=== PATIENT | male | born 1980 | race African-American/Black ===

== ENCOUNTER 2018-10-29 18:30 | Inpatient (IN) | payer OTHER, SELFPAY ==
[~2018-10-29 18:30] MED LIST: ISOVUE-370 76%-LOCM 1 ML ONE
[2018-10-29] MEDS ORDERED: Labetalol HCl 100 MG/20 ML VIAL ONE (18:33)
[2018-10-29] MEDS ORDERED: niCARdipine 20MG In NaCl 20 MG/200 ML BAG ONE (18:44)
[2018-10-29 18:47] LABS: #Eosinphils 0.1 thou/uL (0.0-0.7); #Lymphocytes 2.5 thou/uL (1.20-3.40); #Monocytes 0.9 thou/uL (0.11-0.59); %Basophils 0.1 % (0.0-1.0); %Lymphocytes 21.6 % (21.0-51.0); %Monocytes 8.1 % (0.0-10.0); %Neutrophils 69.1 % (42.0-75.0); Hemoglobin 15.7 g/dL (14.0-18.0); Mean Corpuscular HGB CONC 33.4 g/dL (32.0-36.0); Mean Corpuscular Hemoglobin 28.1 pg (27.0-31.0); Mean Corpuscular Volume 84.2 fL (78.0-98.0); Mean Platelet Volume 7.4 fL (7.4-10.4); Platelet Count 380 thou/uL (130-400); Red Blood Cell (RBC) Count 5.59 mill/uL (4.70-6.10); White Blood Cell (WBC) Count 11.5 thou/uL (4.8-10.8)
[2018-10-29] MEDS ORDERED: Ondansetron PF 4 MG/2 ML Vial ONE (18:48)
[2018-10-29 18:56] LABS: INR-International Normal Ratio 0.9; PTT 28.1 SEC (22.9-36.1); Prothrombin Time 12.1 SEC (12.0-14.7)
[2018-10-29 19:01] LABS: ALT (SGPT) 20 U/L (8-55); AST (SGOT) 19 U/L (5-34); Albumin 4.9 g/dL (3.5-5.0); Alkaline Phosphatase 113 U/L (40-150); Anion Gap 15 mmol/L (10-20); BUN (Urea Nitrogen) 16 mg/dL (8.9-20.6); Bilirubin, Total 0.3 mg/dL (0.2-1.2); CK (CPK) 493 U/L (30-200); Calc. Creatinine Clearance 0 mL/min (70-130); Calcium 10.3 mg/dL (7.8-10.44); Carbon Dioxide 28 mmol/L (22-29); Chloride 99 mmol/L (98-107); Estimated GFR-MDRD 76; Globulin 4.2 g/dL (2.4-3.5); Glucose 170 mg/dL (70-105); Protein, Total 9.1 g/dL (6.0-8.3); Sodium 139 mmol/L (136-145)
[2018-10-29 19:08] LABS: Potassium 2.9 mmol/L (3.5-5.1)
[2018-10-29] MEDS ORDERED: Tranexamic Acid 1,000 MG/10 ML VIAL ONE (19:20)
--- NOTE | 2018-10-29 19:22 | CT ---
CTA HEAD WITH CONTRAST: INDICATIONS: Acute intraparenchymal hemorrhage in the right frontal lobe, previously described on noncontrast CT. TECHNIQUE: Axial tomograms obtained with multiplanar reconstruction and 3D post processing, following angio prot ocol. FINDINGS: The intracranial internal carotid arteries are patent and symmetric. Middle cerebral arteries, anter ior cerebral arteries, basilar artery, and posterior cerebral arteries are patent and symmetric. The re is no evidence of AVM in the right upper lobe that would explain the etiology for the hemorrhage. Other small vascular malformations, such as cavernoma, are not excluded. IMPRESSION: Unremarkable CT cerebral angio study. No evidence of arteriovenous malformation. CTA NECK: INDICATIONS: Intracerebral hemorrhage. TECHNIQUE: Axial tomograms obtained with multiplanar reconstruction and 3D post processing. FINDINGS: The common carotid arteries and the extracranial internal carotid arteries are unremarkable. Vertebr al arteries are patent and symmetric. Review of soft tissues shows nonspecific fullness at the Waldeyer's ring and involving the palatine t onsils, suggesting mild prominence for age. There is also some prominence of the pharyngeal tonsils. The left piriform sinus is effaced, of uncertain significance. There is nonspecific lymph node enlargement in the cervical chain bilaterally. IMPRESSION: 1. Unremarkable CTA neck. 2. Soft tissue findings in the neck, as described above. Recommend ENT (ear, nose, and throat) eval uation of these findings when feasible. Findings relayed to Dr. Santana at 7:10 p.m. LEO PISANO POS: MCKINLEY
[2018-10-29] MEDS ORDERED: Tranexamic Acid 1,000 MG in Sodium Chloride 0.9% 250 ML 250 ML IVPB SCH (19:30)
[2018-10-29] MEDS ORDERED: Labetalol HCl 100 MG/20 ML VIAL SLOW IVP PRN (19:35)
[2018-10-29] MEDS ORDERED: Ondansetron PF 4 MG/2 ML Vial IVP PRN (19:35)
[2018-10-29] MEDS ORDERED: niCARdipine 25 MG in Sodium Chloride 0.9% 250 ML 240 ML IVPB PRN (19:35)
[2018-10-29] MEDS ORDERED: Acetaminophen 1,000 MG in Premix Bag 1 BAG IVPB PRN (19:41)
[2018-10-29] MEDS ORDERED: Potassium Chloride 40 MEQ in Sodium Chloride 0.9% 250 ML 250 ML IVPB SCH (20:30)
--- NOTE | 2018-10-29 21:25 | HP ---
PRIMARY CARE DOCTOR: CODE STATUS: Full code. TIME OF EVALUATION: 7:50 p.m. CHIEF COMPLAINT: Leg weakness. HISTORY OF PRESENT ILLNESS: This is a 38-year-old male patient with past medical history of cocaine abuse, came to the hospital after having left arm and left leg weakness. The symptoms started 1 hour ago with no clear triggers, no alleviating factors. The blood pressure was measured at 230/147. CT scan showed intracranial bleeding. The patient has been seen by Neurosurgery, has been started on Cardene drip. We will place him in ICU for continuous monitoring. The patient is alert and talking. Symptoms are still present. Symptoms started suddenly. REVIEW OF SYSTEMS: CONSTITUTIONAL: No fever, chills, or generalized weakness. RESPIRATORY: No cough, sputum production, shortness of breath. CARDIOVASCULAR: The patient has hypertension. No palpitation. GASTROINTESTINAL: No nausea, vomiting, diarrhea, or abdominal pain. 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 GENITOURINARY: No burning on urination. EXTREMITIES: No leg swelling. All other systems reviewed and negative except for the findings mentioned above. PAST MEDICAL HISTORY: Positive for no findings reported. PAST SURGICAL HISTORY: No surgical history. PSYCHIATRIC HISTORY: No psychiatric history. SOCIAL HISTORY: The patient drinks alcohol socially every week. The patient used cocaine, reported last use 2 days ago. No smoking history. FAMILY HISTORY: Hypertension . KNOWN ALLERGIES: No known drug allergies. PHYSICAL EXAMINATION: VITAL SIGNS: On presentation, blood pressure 192/129, heart rate 129, the pain was 0/10. GENERAL: The patient is alert, oriented, is not in acute distress. HEENT: Eyes, normal conjunctiva. Moist oral mucosa. Anicteric. No JVD. RESPIRATORY: Bilateral air entry. No rales. No wheezes. Symmetric expansion. CARDIOVASCULAR: The patient hypertensive, tachycardic. No murmurs. No gallop. No edema. ABDOMEN: Soft, normal bowel sounds. MUSCULOSKELETAL: Baseline range of motion and strength. SKIN: Warm, intact. No pallor. No rash. No redness. Capillary refill seems to be intact. NEUROLOGIC: The patient has left-sided weakness. Cranial nerves seems to be intact. PSYCHIATRIC: The patient is in good mood. No anxiety. Optimal judgment. IMAGING DATA: EKG was reviewed. The patient has sinus tachycardia at the rate of 104, WI 146, QT corrected 481. P-wave abnormality, consider inferolateral ischemia. LABORATORY DATA: Reviewed. White count 11.5, hemoglobin 15.7, MCV 84.2, platelet count 380. Coagulation: PT 12.1, INR 0.9, PTT 28.1. Sodium 139, potassium 2.9, chloride 99, carbon dioxide 28, anion gap 15, BUN 16, creatinine 1.29, GFR 76, glucose 170, calcium 10.3, total bilirubin 0.3. LFTs were negative. CK 493, troponin 0.015. Serum total protein 9.1, albumin 4.9, globulin 4.2, albumin to globulin ratio 1.0. ASSESSMENT AND PLAN: The patient will be placed in the hospital with the following medical problems: 1. Acute intraparenchymal bleeding secondary to hypertensive emergency. The patient is started on Cardene drip and placed in ICU. We will monitor. Neurosurgery is taking care of this problem. The patient as of now is alert and talking. 2. Hypokalemia, potassium 2.9. We will monitor electrolytes, we will treat accordingly. 3. Hypoglycemia. No history of diabetes, possibly due to physical distress. We will monitor, we will treat accordingly. 4. Deep venous thrombosis prophylaxis. 5. Hypertensive emergency causing intracranial bleeding. Treatment as above. ICU time spent in evaluation, case discussion with Neurosurgery PA, review of records, stabilization of the patient more than 35 minutes. Job ID: [id number]
[2018-10-29] MEDS: Famotidine/PF 20 mg/2ml Vial SLOW IVP SCH (23:29)
[2018-10-29] MEDS: Sodium Chloride 0.9% 1,000 ML IV SCH (23:29)
[2018-10-29] MEDS: niCARdipine 50 MG in Sodium Chloride 0.9% 250 ML 230 ML IVPB PRN (23:29)
[2018-10-30] MEDS: niCARdipine 50 MG in Sodium Chloride 0.9% 250 ML 230 ML IVPB PRN ×4 (04:16→22:00)
[2018-10-30 04:47] LABS: #Monocytes 1.2 thou/uL (0.11-0.59); #Neutrophils 8.7 thou/uL (1.40-6.50); %Basophils 0.3 % (0.0-1.0); %Eosinophils 0.1 % (0.0-10.0); %Lymphocytes 16.6 % (21.0-51.0); %Monocytes 9.6 % (0.0-10.0); %Neutrophils 73.3 % (42.0-75.0); Hemoglobin 14.3 g/dL (14.0-18.0); Mean Corpuscular HGB CONC 33.3 g/dL (32.0-36.0); Mean Corpuscular Hemoglobin 28.2 pg (27.0-31.0); Mean Corpuscular Volume 84.8 fL (78.0-98.0); Platelet Count 320 thou/uL (130-400); RBC Distribution Width 12.8 % (11.5-14.5); Red Blood Cell (RBC) Count 5.06 mill/uL (4.70-6.10); White Blood Cell (WBC) Count 11.9 thou/uL (4.8-10.8)
[2018-10-30 05:08] LABS: Anion Gap 14 mmol/L (10-20); BUN (Urea Nitrogen) 16 mg/dL (8.9-20.6); Calc. Creatinine Clearance 99 mL/min (70-130); Calcium 9.3 mg/dL (7.8-10.44); Carbon Dioxide 26 mmol/L (22-29); Chloride 104 mmol/L (98-107); Estimated GFR-MDRD 68; Glucose 125 mg/dL (70-105); Potassium 3.5 mmol/L (3.5-5.1); Sodium 140 mmol/L (136-145)
--- NOTE | 2018-10-30 06:53 | CT ---
HEAD CT NONCONTRAST: Date: 10/30/18 COMPARISON: Previous day. INDICATION: Intracranial hemorrhage, follow-up. FINDINGS: Parenchymal hemorrhage centered at the medial, high right frontal lobe is redemonstrated, and is slig htly increased in volume. Surrounding vasogenic edema is slightly increased, as well. Mild degree of mass effect is grossly stable. Slight leftward midline shift, superiorly, is similar in appearance. V entricular system is stable in size. IMPRESSION: Slight interval increase in volume of acute parenchymal hemorrhage of the superior right frontal lobe with mild increase of surrounding vasogenic edema. Recommend continued imaging follow-up. POS: TRACY
--- NOTE | 2018-10-30 07:27 | CT ---
Head CT without contrast 10/29/2018: HISTORY: Hypertension, stroke TECHNIQUE: Axial CT imaging at 5 mm intervals from vertex through skull base without contrast FINDINGS: There is a intra-axial hemorrhage in the anterior medial right frontal lobe near the vertex measuring 2.6 x 4.1 cm. There is mild mass effect with slight deviation of the midline structures in this region to the left by 4 mm. No intraventricular extension. No additional hemorrhage. Imaged p aranasal sinuses and mastoid air cells are well aerated. No displaced calvarial fracture. IMPRESSION: Intra-axial hemorrhage in the right frontal lobe. In order to exclude an underlying brain lesion, follow-up MRI with and without contrast advised once the hemorrhage has resolved. Dr. Santana made aware at 6:40 PM 10/29/2018.
[2018-10-30] MEDS: Sodium Chloride 0.9% 1,000 ML IV SCH ×2 (08:26→20:45)
[2018-10-30] MEDS: Famotidine/PF 20 mg/2ml Vial SLOW IVP SCH ×2 (08:37→20:45)
[2018-10-30] MEDS ORDERED: Fentanyl 100 MCG/2 ML VIAL ONE (14:23)
[2018-10-30] MEDS ORDERED: Midazolam HCl 2 mg/2 ml Vial ONE (14:23)
--- NOTE | 2018-10-30 14:35 | CON ---
DATE OF CONSULTATION: 10/30/2018 HISTORY OF PRESENT ILLNESS: Mr. St is a 38-year-old male, who presented with severe weakness of his left upper and lower extremity. He is extremely hypertensive when he was triaged. He was 230/147 according to the admission history and physical. He was found to have brain hemorrhage. His blood pressure is now controlled at 146/66. His heart rate is 112. He is still not moving his left side much. PAST MEDICAL HISTORY: Otherwise, unremarkable. SOCIAL HISTORY: He drinks occasionally. He is a cocaine user. FAMILY HISTORY: Negative for lung disease in early age. REVIEW OF SYSTEMS: 10 point review of systems completed, otherwise negative. PHYSICAL EXAMINATION: VITAL SIGNS: Heart rate 103, blood pressure currently 146/66, and respiratory rate is 18. GENERAL: He is in no distress, lying flat in bed. HEENT: Pupils are equal. Sclerae are anicteric. Extraocular movements are intact. NECK: Supple. No lymphadenopathy. LUNGS: Clear. HEART: Regular rhythm. S1 and S2 are normal. I do not hear murmur. ABDOMEN: Soft and nontender. No masses. EXTREMITIES: Without clubbing, cyanosis, or edema. NEUROLOGIC: He is hemiplegic on the left. IMPRESSION: 1. Parenchymal brain hemorrhage. 2. Cocaine abuse. PLAN: Continue supportive care. Neurosurgery has ordered an MRI, although he is claustrophobic, so Anesthesia will go with him for his MRI. This is a 70 minute consult, with greater than 50% of time spent coordinating care. Job ID: [id number]
--- NOTE | 2018-10-30 15:08 | PDOC.HOSPP ---
- Subjective Subjective: Says he feels ok. No new complaints now. Cannot move his left leg. - Objective Vital Signs & Weight: Vital Signs (12 hours) Pulse Ox 10/30/18 07:35 97 Weight Weight 217 lb 9.54 oz Most Recent Monitor Data Heart Rate from ECG 105 NIBP 130/77 NIBP BP-Mean 94 Respiration from ECG 21 SpO2 93 I&O: 10/29/18 10/30/18 10/31/18 06:59 06:59 06:59 Intake Total 1702 0 Output Total 600 350 Balance 1102 -350 Result Diagrams: 10/30/18 04:40 10/30/18 04:40 Additional Labs: Accuchecks 10/29/18 18:35 POC Glucose 140 H ROS - Medication Medications: Active Medications Generic Name Dose Route Start Last Admin Trade Name Freq PRN Reason Stop Dose Admin Famotidine 20 mg 10/29/18 21:00 10/30/18 08:37 Pepcid SLOW IVP 20 mg Q12HR JONI Administration Sodium Chloride 1,000 mls @ 80 mls/hr 10/29/18 19:45 10/30/18 08:26 Normal Saline 0.9% IV 1,000 mls .[id number] JONI Administration Acetaminophen 1,000 mg/ Device 100 mls @ 400 mls/hr 10/29/18 19:41 10/30/18 11:15 IVPB 10/30/18 19:42 100 mls Q6H PRN Administration Fever/Mild Pain Nicardipine HCl 50 mg/ Sodium 250 mls @ 0 mls/hr 10/29/18 22:51 10/30/18 10: 14 Chloride IVPB 250 mls INF PRN Administration SBP > 150 or DBP > 90 Protocol Titrate - Exam NAD, awake alert ENT: normocephalic atraumatic, no oropharyngeal lesions, moist mucosa Neck: supple, symmetric, no JVD, no thyromegaly, no lymphadenopathy, no carotid bruit Heart: RRR, no murmur, no gallops, no rubs, normal peripheral pulses Respiratory: CTAB, no wheezes, no rales, no ronchi, normal chest expansion, no tachypnea, normal percussion Gastrointestinal: soft, non-tender, non-distended, normal bowel sounds, no palpable masses, no hepatomegaly, no splenomegaly, no bruit Extremities: no cyanosis, no clubbing, no edema Skin: normal turgor Neurological - other findings: Left LE paralysis. Can squeeze with L hand, but proximal weakness. Psychiatric: normal affect, normal behavior, A&O x 3 Hosp A/P (1) Cerebral parenchymal hemorrhage Code(s): I61.9 - NONTRAUMATIC INTRACEREBRAL HEMORRHAGE, UNSPECIFIED Status: Acute (2) Cocaine abuse Code(s): F14.10 - COCAINE ABUSE, UNCOMPLICATED Status: Acute (3) Hypertensive emergency Code(s): I16.1 - HYPERTENSIVE EMERGENCY Status: Acute (4) Hypokalemia Code(s): E87.6 - HYPOKALEMIA Status: Resolved - Plan BP better with cardene. MRI Pulm following. Neurosurg admitted and follwing. No additional recommendations now.
[2018-10-30] MEDS ORDERED: Ondansetron PF 4 MG/2 ML Vial ONE (15:30)
[2018-10-30] MEDS ORDERED: Lidocaine 1% PF 5 ML VIAL ONE (15:30)
[2018-10-30] MEDS ORDERED: Dexamethasone 20 MG/5 ML VIAL ONE (15:30)
[2018-10-30] MEDS ORDERED: PROPOFOL 200 MG/20 ML VIAL ONE (15:30)
--- NOTE | 2018-10-30 15:40 | PRG ---
DATE OF SERVICE: 10/30/2018 SUBJECTIVE: The patient was seen and examined, I agree with Carmen Saldana's evaluation, 10/29/2018. The patient is a 38-year-old male with a history of hypertension and drug abuse, who developed spontaneous onset of left hemiparesis yesterday. OBJECTIVE: GENERAL: On current examination, he is alert and appropriate, although he does have left-sided neglect. EXTREMITIES: He has a dense left leg weakness, but he is moving his arm relatively briskly. IMAGING STUDIES: CT of the head reveals a large right superior frontal hemorrhage. This is stable on followup CT. CT angiography was negative. IMPRESSION AND PLAN: The patient has had a right frontal hemorrhage presumably related to hypertension. We will check an MRI scan to exclude any underlying pathology and continue with supportive care. No plans for surgical intervention at this time. I updated the patient and his fiancee. Job ID: [id number]
--- NOTE | 2018-10-30 17:26 | MRI ---
MRI BRAIN WITH AND WITHOUT CONTRAST: INDICATIONS: Right frontal lobe intraparenchymal hematoma. FINDINGS: The previously described hematoma in the right frontal lobe is seen on MRI. The total measurement on the T1 axial was 7 cm in AP dimension x 2.5 cm in width. Slight midline shift has been previously n oted on CT with slight midline shift of the falx superiorly. There is no significant shift of the se ptum pellucidum. There is a cystic component superiorly, which exhibits low T1 and high T2 signal. The hematoma porti on shows signal characteristics consistent with acute/subacute with isointensity on T1 and iso to stevenson k on T2. Mild surrounding edema is seen on FLAIR and T2. No abnormal enhancement identified on post contrast images. No evidence of associated mass or vascul ar malformation. IMPRESSION: Intraparenchymal hematoma in the right frontal lobe. No abnormal enhancement identified. POS: TPC
[2018-10-31] MEDS: niCARdipine 50 MG in Sodium Chloride 0.9% 250 ML 230 ML IVPB PRN ×6 (02:51→23:32)
[2018-10-31] MEDS: Sodium Chloride 0.9% 1,000 ML IV SCH (06:31)
[2018-10-31] MEDS: Amlodipine 5 MG TAB PO SCH (09:41)
[2018-10-31] MEDS: Famotidine/PF 20 mg/2ml Vial SLOW IVP SCH ×2 (09:42→20:15)
--- NOTE | 2018-10-31 09:45 | PRG ---
DATE OF SERVICE: 10/31/2018 SUBJECTIVE: The patient has no overnight events in the ICU. He is still requiring Cardene for control of his blood pressure. His MRI was done yesterday with assistance of anesthesia, which is negative for any underlying mass or lesion. OBJECTIVE: On exam this morning,the patient is awake, alert, oriented x3. He is noted to have left-sided dense left-sided hemiplegia. His weakness in the left upper extremity does seem slightly increased today. The patient's MRI shows right frontal hemorrhage with some surrounding vasogenic edema. There is no underlying mass or lesion. The patient had some progression of his left-sided hemiplegia. His hematoma does appear stable though. We will continue to monitor closely in the ICU and work on transitioning from IV antihypertensives to oral antihypertensive medications. We will continue to follow. Job ID: [id number]
--- NOTE | 2018-10-31 10:01 | PRG ---
DATE OF SERVICE: 10/31/2018 SUBJECTIVE: Mr. St is still hemiplegic. OBJECTIVE: VITAL SIGNS: His heart rate in the 90s, blood pressure 128/76, respiratory rates in the teens. GENERAL: He is protecting his airways, able to speak. LUNGS: Clear. HEART: Regular rhythm. ABDOMEN: Soft and nontender. EXTREMITIES: Without edema. LABORATORY DATA: White count 11.9, hemoglobin 14.3, platelets 320 yesterday. There were no electrolytes or CBC today. IMPRESSION: 1. Parenchymal brain hemorrhage with hemiplegia. 2. Hypertension. 3. Cocaine use. He will be started on Norvasc today and his Cardene we did taper off. He is a candidate to go to the Stroke Unit. He needs to have lab checked in the morning in my opinion. Job ID: [id number]
--- NOTE | 2018-10-31 11:06 | PDOC.HOSPP ---
- Subjective Encounter Date: 10/31/18 Encounter Time: 11:04 Subjective: Says he is doing well. No complaints. - Objective Vital Signs & Weight: Vital Signs (12 hours) Temp Pulse BP Pulse Ox 10/31/18 09:41 120 H 155/94 H 10/31/18 08:00 95 10/31/18 07:00 98.3 F 10/31/18 04:00 98.2 F 10/31/18 00:00 98.3 F Weight Weight 217 lb 9.54 oz Most Recent Monitor Data Heart Rate from ECG 104 NIBP 172/99 NIBP BP-Mean 123 Respiration from ECG 15 SpO2 97 I&O: 10/30/18 10/31/18 11/01/18 06:59 06:59 06:59 Intake Total 1702 3732 400 Output Total 600 1500 0 Balance 1102 2232 400 Result Diagrams: 10/30/18 04:40 10/30/18 04:40 ROS - Medication Medications: Active Medications Generic Name Dose Route Start Last Admin Trade Name Freq PRN Reason Stop Dose Admin Amlodipine Besylate 5 mg 10/31/18 09:00 10/31/18 09:41 Norvasc PO 5 mg DAILY JONI Administration Famotidine 20 mg 10/29/18 21:00 10/31/18 09:42 Pepcid SLOW IVP 20 mg Q12HR JONI Administration Nicardipine HCl 50 mg/ Sodium 250 mls @ 0 mls/hr 10/29/18 22:51 10/31/18 06: 31 Chloride IVPB 250 mls INF PRN Administration SBP > 150 or DBP > 90 Protocol Titrate - Exam NAD Heart: RRR, no murmur, no gallops, no rubs, normal peripheral pulses Respiratory: CTAB, no wheezes, no rales, no ronchi, normal chest expansion, no tachypnea, normal percussion Gastrointestinal: soft, non-tender, non-distended, normal bowel sounds, no palpable masses, no hepatomegaly, no splenomegaly, no bruit Extremities: no cyanosis, no clubbing, no edema Skin: normal turgor Neurological - other findings: Complete left hemiplegia. Advanced from yesterday. Psychiatric: somnolent, lethargic Hosp A/P (1) Cerebral parenchymal hemorrhage Code(s): I61.9 - NONTRAUMATIC INTRACEREBRAL HEMORRHAGE, UNSPECIFIED Status: Acute (2) Cocaine abuse Code(s): F14.10 - COCAINE ABUSE, UNCOMPLICATED Status: Acute (3) Hypertensive emergency Code(s): I16.1 - HYPERTENSIVE EMERGENCY Status: Acute (4) Hypokalemia Code(s): E87.6 - HYPOKALEMIA Status: Resolved (5) Acute metabolic encephalopathy Code(s): G93.41 - METABOLIC ENCEPHALOPATHY Status: Acute - Plan BP better with cardene. Transitioning to po. MRI shows not evidence of mass. Progression of the left paralysis. Creatinine went up yesterday. Agree with plan for labs in am. to check renal function. Could have hypertensive nephropathy. Still encephalopathic. Likely related to bleed or cocaine cessation.
[2018-10-31] MEDS: Labetalol HCl 100 MG/20 ML VIAL SLOW IVP PRN ×2 (12:18→15:33)
[2018-11-01] MEDS: niCARdipine 50 MG in Sodium Chloride 0.9% 250 ML 230 ML IVPB PRN ×4 (02:24→23:57)
[2018-11-01] MEDS ORDERED: Lorazepam 2 MG/ML VIAL ONE (02:47)
[2018-11-01] MEDS ORDERED: Lorazepam 2 MG/ML VIAL SLOW IVP SCH (03:15)
[2018-11-01] MEDS ORDERED: levETIRAcetam In NaCl (Iso-Os) 1,000 MG in Premix Bag 1 BAG IVPB SCH (03:30)
[2018-11-01 05:19] LABS: Hemoglobin 14.4 g/dL (14.0-18.0); Lymphocytes 9 % (21-51); MDiff Complete? YES; Mean Corpuscular HGB CONC 31.9 g/dL (32.0-36.0); Mean Corpuscular Hemoglobin 27.6 pg (27.0-31.0); Mean Corpuscular Volume 86.5 fL (78.0-98.0); Mean Platelet Volume 7.3 fL (7.4-10.4); Monocytes 10 % (0-10); Neutrophil 81 % (42-75); Platelet Count 361 thou/uL (130-400); Platelet Morphology Comment Appears Adequate; RBC Distribution Width 13.1 % (11.5-14.5); RBC Morphology Normal; Red Blood Cell (RBC) Count 5.23 mill/uL (4.70-6.10); White Blood Cell (WBC) Count 12.8 thou/uL (4.8-10.8)
[2018-11-01 05:25] LABS: Anion Gap 12 mmol/L (10-20); BUN (Urea Nitrogen) 14 mg/dL (8.9-20.6); Calc. Creatinine Clearance 128 mL/min (70-130); Calcium 9.2 mg/dL (7.8-10.44); Carbon Dioxide 24 mmol/L (22-29); Chloride 104 mmol/L (98-107); Estimated GFR-MDRD Greater than 90; Glucose 131 mg/dL (70-105); Potassium 3.3 mmol/L (3.5-5.1); Sodium 137 mmol/L (136-145)
--- NOTE | 2018-11-01 07:34 | CT ---
CT OF HEAD NONCONTRAST: INDICATION: Intracranial hemorrhage, followup. COMPARISON: Reference is made to head CT 2 days prior. FINDINGS: Slight interval decrease in volume of hematoma of the high right frontal lobe with surrounding vasoge reshma edema. There is slight leftward deviation of the midline, at the level of the hematoma. This hartley s slightly decreased. The ventricular system is stable. No significant interval change is otherwise demonstrated. IMPRESSION: 1. Slight decrease in volume of intracranial hemorrhage of the high right frontal lobe. 2. Recommend imaging followup to resolution. POS: TRACY
[2018-11-01] MEDS: Amlodipine 5 MG TAB PO SCH ×2 (09:09→10:32)
--- NOTE | 2018-11-01 09:29 | PRG ---
DATE OF SERVICE: 11/01/2018 SUBJECTIVE: The patient is a 38-year-old male, who suffered right frontal intraparenchymal hemorrhage and also had hypertensive crisis. He has been monitored in the ICU closely and overnight had approximately 1 minute of grand mal seizure activity. This was spontaneously aborted and the patient was treated with 1 mg of Ativan and given 1000 mg of Keppra IV. A repeat CT of the head shows slightly decreased hemorrhage in the right frontal region. He is a bit drowsy but has otherwise remained neurologically unchanged. OBJECTIVE: NEUROLOGIC: On my exam this morning, the patient is drowsy, but awakens easily. He is able to tell me his name and follows commands on the right. He continues to have a dense left hemiplegia. ASSESSMENT AND PLAN: We will plan to continue Keppra 500 mg IV, but I have also consulted Neurology for recommendations for management of his seizures. We will continue to monitor closely in the ICU. Job ID: [id number]
[2018-11-01] MEDS: Famotidine/PF 20 mg/2ml Vial SLOW IVP SCH ×2 (09:34→20:37)
--- NOTE | 2018-11-01 09:50 | PRG ---
DATE OF SERVICE: 11/01/2018 SUBJECTIVE: The patient had a seizure last night. He was given some Ativan. He is sleeping heavily after being given the Ativan. He is arousable to deep stimulation. OBJECTIVE: VITAL SIGNS: His O2 saturation is in the mid 90s, pulse 88, blood pressure 117/69, respiratory rate 19. HEENT: Unremarkable. NECK: No JVD. CHEST: Clear to auscultation. CARDIAC: S1, S2. Regular. ABDOMEN: Soft. EXTREMITIES: No edema. He remains on a Cardene drip. LABORATORY DATA: White blood cell count 12.8, hematocrit 45.2, and platelet count 361. Sodium 137, potassium 3.3, BUN 14, creatinine 1.1, glucose 131. ASSESSMENT: 1. Status post parenchymal brain hemorrhage with hemiplegia, CT scan better today. 2. Hypertension. 3. Cocaine use. PLAN: 1. He will slowly be weaned off his Cardene drip. I will go ahead and increase the dose of his amlodipine as I suspect he will need more than 5 mg per day. 2. He remains on anticonvulsant medications per the Neurosurgery Team. His transfer to stroke unit is predicated on weaning him off the nicardipine drip. Job ID: [id number]
--- NOTE | 2018-11-01 11:03 | PDOC.HOSPP ---
- Subjective Subjective: Getting fed breakfast by his girlfriend. Denies complaints. Says he can move his left arm (but he cannot). - Objective Vital Signs & Weight: Vital Signs (12 hours) Temp Pulse BP Pulse Ox 11/01/18 10:32 114 H 152/102 H 11/01/18 09:09 114 H 180/103 H 11/01/18 03:59 95 11/01/18 01:00 93 L 11/01/18 00:00 98.6 F Weight Weight 237 lb 7.005 oz Most Recent Monitor Data Heart Rate from ECG 109 NIBP 148/91 NIBP BP-Mean 110 Respiration from ECG 24 SpO2 93 I&O: 10/31/18 11/01/18 11/02/18 06:59 06:59 06:59 Intake Total 3732 5275.5 Output Total 1500 1054 Balance 2232 4221.5 Result Diagrams: 11/01/18 04:48 11/01/18 04:48 ROS - Medication Medications: Active Medications Generic Name Dose Route Start Last Admin Trade Name Jayjayq PRN Reason Stop Dose Admin Amlodipine Besylate 10 mg 11/01/18 09:20 11/01/18 10:32 Norvasc PO 10 mg DAILY JONI Administration Famotidine 20 mg 10/29/18 21:00 11/01/18 09:34 Pepcid SLOW IVP 20 mg Q12HR JONI Administration Nicardipine HCl 50 mg/ Sodium 250 mls @ 0 mls/hr 10/29/18 22:51 11/01/18 09: 34 Chloride IVPB 250 mls INF PRN Administration SBP > 150 or DBP > 90 Protocol Titrate Labetalol HCl 10 mg 10/31/18 04:23 10/31/18 15:33 Normodyne SLOW IVP 10 mg Q4H PRN Administration SBP Greater Than 180 - Exam NAD, awake alert ENT: normocephalic atraumatic Heart: RRR, no murmur, no gallops, no rubs, normal peripheral pulses Heart - other findings: Tachy Respiratory: CTAB, no wheezes, no rales, no ronchi, normal chest expansion, no tachypnea, normal percussion Gastrointestinal: soft, non-tender, non-distended, normal bowel sounds, no palpable masses, no hepatomegaly, no splenomegaly, no bruit Extremities: no cyanosis, no clubbing, no edema Skin: normal turgor Neurological: hemiplegia (Left) Psychiatric: flat affect Hosp A/P (1) Cerebral parenchymal hemorrhage Code(s): I61.9 - NONTRAUMATIC INTRACEREBRAL HEMORRHAGE, UNSPECIFIED Status: Acute (2) Cocaine abuse Code(s): F14.10 - COCAINE ABUSE, UNCOMPLICATED Status: Acute (3) Hypertensive emergency Code(s): I16.1 - HYPERTENSIVE EMERGENCY Status: Acute (4) Hypokalemia Code(s): E87.6 - HYPOKALEMIA Status: Resolved (5) Acute metabolic encephalopathy Code(s): G93.41 - METABOLIC ENCEPHALOPATHY Status: Acute (6) Seizure Code(s): R56.9 - UNSPECIFIED CONVULSIONS Status: Acute - Plan MRI shows not evidence of mass. Progression of the left paralysis. Now complete. Renal function back to normal. Still encephalopathic. Seizure last night. Likely related to bleed or cocaine cessation. Started on Keppra. Neuro consult pending. PT limited due to BP going up with efforts. BP is highly variable. Down to 110 systolic overnight. Occasional spikes to much higher. Cardene still employed for this. CT showed reduced blood.
--- NOTE | 2018-11-01 17:20 | CON ---
DATE OF CONSULTATION: 11/01/2018 Telemedicine consultation, accompanying RN is Jonny Rose. CHIEF COMPLAINT: Evaluate for seizure. The patient's family was present, but they were sleeping in the room. History obtained from his nurse and her chart. The patient was brought in with history of sudden onset and weakness on the left side on 10/29/2018 and he had symptom onset about 1 hour prior to arrival and blood pressure was measured at 230/147. CT scan showed intracranial right frontal bleed and Neurosurgery was consulted. At this time, plan is to maintain him on Cardene drip on conservative management of his bleed. The patient then developed sudden- onset seizure last night, which was a generalized tonic-clonic witnessed seizure lasting 2 minutes or so and he had 15 minutes of postictal phase and he has been somewhat sleepy since this time and he is still awake, alert, and able to communicate quite well and his repeat CT today was also abnormal with slight decrease in volume of intracranial hemorrhage of the high right frontal lobe and the patient has received Keppra for seizure control and we were consulted for evaluation. He is currently on Keppra 500 mg b.i.d. REVIEW OF SYSTEMS: Difficult to obtain due to patient's sleepiness and sedation. PREVIOUS MEDICAL HISTORY: Positive for hypertension on arrival. PREVIOUS SURGICAL HISTORY: No surgical history. No psychiatric history. SOCIAL HISTORY: He drinks alcohol once a week. He used cocaine. Last use reported was 2 days prior to arrival to the ER. He does not smoke. FAMILY HISTORY: Positive for hypertension. ALLERGIES: NO KNOWN DRUG ALLERGIES. LABORATORY DATA: Current lab workup; white count 12.8, hemoglobin 14.4, hematocrit 45.2, platelet count 361. Chemistry; sodium 137, potassium 3.3, chloride 104, bicarbonate 24, BUN 14, creatinine 1.10, glucose 131, and CPK 493. Liver functions are mostly within normal range. Coagulation is also within normal range. CTA of the head showed right frontal bleed and brain MRI which was performed two days ago also showed intraparenchymal hematoma in the right frontal lobe and CT angio of the [place] and carotid did not show any aneurysm and he has some soft tissue nonspecific fullness at the Waldeyer's ring involving the palatine tonsils suggesting mild prominence for age and pharyngeal tonsils were also prominent and he has nonspecific enlargement of the cervical lymph nodes. PHYSICAL EXAMINATION: VITAL SIGNS: Blood pressure 148/106, pulse 92, he was afebrile, temperature of 98. GENERAL APPEARANCE: Well-built, well-nourished man, who appears to be sleepy, but easily arousable and talk when asked. CHEST: Clear vesicular breathing. CARDIOVASCULAR: S1 and S2 heard. No murmurs. ABDOMEN: Soft. NEUROLOGIC: Higher intellectual functions. He was oriented to time, place, and person. He was able to follow commands. Cranial nerves, left facial droop. Normal sensation of face bilaterally. Normal extraocular movements. Tongue midline. Normal elevation of palate. Normal hearing bilaterally. Motor, bulk normal. Tone, normal. Strength 5/5 on the right side. On the left side, he has flaccid weakness with strength of 0/5 in upper and lower extremities. He had hyperreflexia with clonus in the left lower extremity and he has normal sensation bilaterally. Unfortunately during the examination, he had loss of concentration and tended to have right-sided gaze deviation and remained unresponsive for a few minutes. I suspect that was also a seizure, probably partial seizure. IMPRESSION: The patient with right frontal spontaneous bleed without any underlying aneurysm. He has hypertension on arrival. His examination showed abnormalities with significant left-sided weakness. His family history is positive for hypertension. He also has been using cocaine on and off. His clinical diagnosis is consistent with spontaneous right frontal hematoma and he is currently being seen and managed by Neurosurgery as well. Due to the presence of spontaneous change in his mentation associated with gaze deviation, I suspect he is having some complex partial seizures. RECOMMENDATIONS: Please increase the dose of Keppra from 500 b.i.d. to 750 b.i.d. Neurology will follow. I will follow tomorrow as well. Job ID: [id number] [facility]
[2018-11-01] MEDS: levETIRAcetam 750 MG, Admixture Fee 1 EACH in Sodium Chloride 0.9% 100 ML IVPB SCH (20:37)
[2018-11-02 04:52] LABS: Anion Gap 13 mmol/L (10-20); BUN (Urea Nitrogen) 14 mg/dL (8.9-20.6); Calc. Creatinine Clearance 162 mL/min (70-130); Calcium 8.5 mg/dL (7.8-10.44); Carbon Dioxide 26 mmol/L (22-29); Chloride 103 mmol/L (98-107); Estimated GFR-MDRD Greater than 90; Glucose 126 mg/dL (70-105); Sodium 139 mmol/L (136-145)
[2018-11-02 04:53] LABS: Band 3 % (5-11); Elliptocytes SLIGHT = 2-5 cells (100X) (0-1/hpf); Hemoglobin 13.9 g/dL (14.0-18.0); Hypochromia SLIGHT = 6-15 cells (100X) (0-5/hpf); Lymphocytes 31 % (21-51); MDiff Complete? YES; Mean Corpuscular HGB CONC 32.5 g/dL (32.0-36.0); Mean Platelet Volume 7.2 fL (7.4-10.4); Monocytes 10 % (0-10); Neutrophil 55 % (42-75); Platelet Count 342 thou/uL (130-400); Platelet Morphology Comment Appears Adequate; RBC Distribution Width 12.9 % (11.5-14.5); Reactive Lymphocytes 1 % (0-10); Red Blood Cell (RBC) Count 4.97 mill/uL (4.70-6.10); White Blood Cell (WBC) Count 9.9 thou/uL (4.8-10.8)
[2018-11-02 04:57] LABS: Potassium 2.9 mmol/L (3.5-5.1)
[2018-11-02] MEDS: Sodium Chloride 0.9% 1,000 ML IV SCH (05:34)
[2018-11-02] MEDS: niCARdipine 50 MG in Sodium Chloride 0.9% 250 ML 230 ML IVPB PRN ×2 (06:12→17:50)
[2018-11-02] MEDS ORDERED: CCU Electrolyte Replacement 1 EACH FS ONE (07:23)
[2018-11-02] MEDS ORDERED: PHOS-NAK 1 PKT PACK PO PRN ×2 (07:28)
[2018-11-02] MEDS ORDERED: Potassium Chloride 40 MEQ in Premix Bag 1 BAG IVPB PRN (07:28)
[2018-11-02] MEDS ORDERED: Potassium Chloride 20 MEQ TAB PO PRN (07:28)
[2018-11-02] MEDS ORDERED: Potassium Phosphate 9 MMOL in Sodium Chloride 0.9% 100 ML IVPB PRN (07:28)
[2018-11-02] MEDS ORDERED: Magnesium Oxide 400 MG TAB PO PRN ×2 (07:28)
[2018-11-02] MEDS ORDERED: Magnesium 2 GM/50 ML 2 GM in Premix Bag 1 BAG IVPB PRN (07:28)
[2018-11-02] MEDS ORDERED: Potassium Phosphate 15 MMOL in Sodium Chloride 0.9% 250 ML 250 ML IV PRN (07:28)
[2018-11-02] MEDS ORDERED: CCU ELECTROLYTE REPLACEMENT PROTOCOL FS PRN (07:28)
[2018-11-02] MEDS ORDERED: Potassium Chloride 40 MEQ in Sodium Chloride 0.9% 250 ML 250 ML IVPB PRN (07:28)
[2018-11-02] MEDS ORDERED: Potassium Phosphate 12 MMOL in Sodium Chloride 0.9% 250 ML 250 ML IV PRN (07:28)
[2018-11-02] MEDS: Metoprolol Tartrate 25 MG TAB PO SCH ×2 (08:00→20:37)
[2018-11-02] MEDS: Amlodipine 5 MG TAB PO SCH (08:00)
[2018-11-02] MEDS: Famotidine/PF 20 mg/2ml Vial SLOW IVP SCH (08:00)
--- NOTE | 2018-11-02 08:14 | PRG ---
DATE OF SERVICE: 11/02/2018 SUBJECTIVE: The patient wakes up easily today. He denies any complaints. He denies headache. His blood pressure is still requiring nicardipine drip for good control. OBJECTIVE: VITAL SIGNS: Temperature is 98, pulse 107, blood pressure 154/101, and O2 saturation 100%. HEENT: Unremarkable. NECK: No JVD. CHEST: Clear to auscultation. CARDIAC: S1 and S2. Regular. ABDOMEN: Soft. EXTREMITIES: No edema. LABORATORY DATA: White blood cell count 9.9, hematocrit 42.7, and platelet count 342. Sodium 139, potassium 2.9, chloride 103, CO2 of 26, BUN 14, creatinine 0.9, and glucose 126. ASSESSMENT: 1. Parenchymal brain bleed. 2. Hypertension, out of control. 3. Seizure. 4. Hypokalemia. PLAN: 1. Replace potassium. 2. Add metoprolol. 3. Continue amlodipine. 4. Wean off nicardipine as tolerated. Job ID: [id number]
--- NOTE | 2018-11-02 08:26 | PRG ---
DATE OF SERVICE: 11/02/2018 SUBJECTIVE: The patient is a 38-year-old male, who suffered right frontal intracranial hemorrhage. He has been monitored closely in the ICU. He did suffer one episode of seizure and was treated with Ativan and IV Keppra. Neurology has seen him and has recommended increase of his Keppra from 500 b.i.d. to 750 b.i.d. He has had no additional seizure episodes. His neurologic exam has remained stable. OBJECTIVE: GENERAL: On exam this morning, the patient is awake, alert, in no acute distress. He is oriented x3. MUSCULOSKELETAL: He has 5/5 strength on the right. He continues to have left- sided neglect and dense left-sided hemiparesis. ASSESSMENT AND PLAN: We will continue Keppra per Neurology recommendations. We will work on mobilizing the patient and would like to get him up into a chair later today. Dr. Mcfarlane is helping to transition the patient from IV Cardene to p.o. hypertensive medications. He has remained stable neurologically and on follow up CT scan X2. I discussed with Dr. Mcgrath and we will go ahead and sign off. Will arrange 4 week follow up with repeat head CT. Job ID: [id number] [facility]
[2018-11-02] MEDS: levETIRAcetam 750 MG, Admixture Fee 1 EACH in Sodium Chloride 0.9% 100 ML IVPB SCH ×2 (09:07→20:37)
[2018-11-02 09:59] LABS: Potassium 3.2 mmol/L (3.5-5.1)
[2018-11-02] MEDS: Labetalol HCl 100 MG/20 ML VIAL SLOW IVP PRN (12:04)
--- NOTE | 2018-11-02 13:10 | PDOC.HOSPP ---
- Subjective Encounter Date: 11/02/18 Encounter Time: 13:04 Subjective: Patient seen and examined, no new issues or complaints. Family at bedside, all questions answered. - Objective Vital Signs & Weight: Vital Signs (12 hours) Temp Pulse BP Pulse Ox 11/02/18 12:04 114 H 177/119 H 11/02/18 08:00 114 H 152/102 H 96 11/02/18 07:00 98.4 F Weight Weight 239 lb 6.752 oz Most Recent Monitor Data Heart Rate from ECG 86 NIBP 145/101 NIBP BP-Mean 115 Respiration from ECG 20 SpO2 97 I&O: 11/01/18 11/02/18 11/03/18 06:59 06:59 06:59 Intake Total 5275.5 3151 120 Output Total 1054 3500 1000 Balance 4221.5 -349 -880 Result Diagrams: 11/02/18 04:15 11/02/18 09:35 ROS - Medication Medications: Active Medications Generic Name Dose Route Start Last Admin Trade Name Freq PRN Reason Stop Dose Admin Amlodipine Besylate 10 mg 11/01/18 09:20 11/02/18 08:00 Norvasc PO 10 mg DAILY JONI Administration Famotidine 20 mg 10/29/18 21:00 11/02/18 08:00 Pepcid SLOW IVP 20 mg Q12HR JONI Administration Nicardipine HCl 50 mg/ Sodium 250 mls @ 0 mls/hr 10/29/18 22:51 11/02/18 06: 12 Chloride IVPB 250 mls INF PRN Administration SBP > 150 or DBP > 90 Protocol Titrate Sodium Chloride 1,000 mls @ 0 mls/hr 10/31/18 07:54 11/02/18 05:34 Normal Saline 0.9% IV 1,000 mls .Q0M JONI Administration KVO Levetiracetam 750 mg/ 107.5 mls @ 215 mls/hr 11/01/18 21:00 11/02/18 09:07 Miscellaneous Medication 1 IVPB 107.5 mls each/ Sodium Chloride BID JONI Administration Labetalol HCl 10 mg 10/31/18 04:23 11/02/18 12:04 Normodyne SLOW IVP 10 mg Q4H PRN Administration SBP Greater Than 180 Metoprolol Tartrate 25 mg 11/02/18 09:00 11/02/18 08:00 Lopressor PO 25 mg BID JONI Administration Potassium Chloride 40 meq 11/02/18 07:28 11/02/18 12:04 Klor-Con PER TUBE 40 meq ASDIR PRN Administration FOR SERUM K+ 2.5-3.5 - Exam NAD, awake alert Eye: PERRL, anicteric sclera ENT: normocephalic atraumatic, no oropharyngeal lesions Neck: supple, symmetric, no JVD Heart: RRR, no murmur, no gallops Respiratory: CTAB, no wheezes, no rales, no ronchi Gastrointestinal: soft, non-tender, non-distended Hosp A/P (1) Acute metabolic encephalopathy Code(s): G93.41 - METABOLIC ENCEPHALOPATHY Status: Acute (2) Cerebral parenchymal hemorrhage Code(s): I61.9 - NONTRAUMATIC INTRACEREBRAL HEMORRHAGE, UNSPECIFIED Status: Acute (3) Hypertensive emergency Code(s): I16.1 - HYPERTENSIVE EMERGENCY Status: Acute (4) Hypokalemia Code(s): E87.6 - HYPOKALEMIA Status: Resolved - Plan - pt initially admitted to neuro sx, however, they have no signed off conviniently as there's no sx intervention needed, medicine team on consult I suppose to be the new primary - agree with BP targets for now, slowly reduce SBP below 140mmHg - advised patient not to do any more drugs or participate in any lifestyle that would be harmful to himself - labs in AM - keep in ICU for now - case and plan d/w patient at length, family at bedside, they understood and agreed with this plan.
[2018-11-02] MEDS: cloNIDine 0.2 MG TAB PO PRN ×2 (15:15→22:35)
[2018-11-02] MEDS: Famotidine 20 MG TAB PO SCH (20:37)
[2018-11-03 05:27] LABS: Eosinophils 2 % (0-10); Hemoglobin 15.2 g/dL (14.0-18.0); Lymphocytes 20 % (21-51); MDiff Complete? YES; Mean Corpuscular HGB CONC 32.2 g/dL (32.0-36.0); Mean Corpuscular Hemoglobin 27.6 pg (27.0-31.0); Mean Corpuscular Volume 85.7 fL (78.0-98.0); Monocytes 11 % (0-10); Neutrophil 67 % (42-75); Platelet Count 292 thou/uL (130-400); Platelet Morphology Comment Appears Adequate; White Blood Cell (WBC) Count 11.3 thou/uL (4.8-10.8)
[2018-11-03 05:33] LABS: Anion Gap 17 mmol/L (10-20); BUN (Urea Nitrogen) 14 mg/dL (8.9-20.6); Calc. Creatinine Clearance 169 mL/min (70-130); Calcium 9.7 mg/dL (7.8-10.44); Carbon Dioxide 22 mmol/L (22-29); Chloride 104 mmol/L (98-107); Estimated GFR-MDRD Greater than 90; Glucose 118 mg/dL (70-105); Potassium 4.5 mmol/L (3.5-5.1); Sodium 138 mmol/L (136-145)
[2018-11-03 06:24] VITALS: BMI 40.2
[2018-11-03] MEDS: Metoprolol Tartrate 25 MG TAB PO SCH ×2 (08:24→20:05)
[2018-11-03] MEDS: levETIRAcetam 750 MG, Admixture Fee 1 EACH in Sodium Chloride 0.9% 100 ML IVPB SCH ×2 (08:24→20:58)
[2018-11-03] MEDS: Amlodipine 5 MG TAB PO SCH (08:24)
[2018-11-03] MEDS: cloNIDine 0.2 MG TAB PO PRN ×2 (08:24→17:06)
[2018-11-03] MEDS: Famotidine 20 MG TAB PO SCH ×2 (08:25→20:05)
--- NOTE | 2018-11-03 08:29 | PRG ---
DATE OF SERVICE: 11/03/2018 SUBJECTIVE: The patient remains in the CCU, intermittently on a Cardene drip. Blood pressure continues to be labile. OBJECTIVE: VITAL SIGNS: On examination, temperature is 98.4, blood pressure 149/87, and O2 saturation 98%. Intake for 24 hours 1346, output 4050. HEENT: Unremarkable. NECK: No adenopathy or JVD. LUNGS: Clear. CARDIAC: S1 and S2, regular. ABDOMEN: Soft. EXTREMITIES: No edema. LABORATORY DATA: White blood cell count 11.3, hematocrit 47, and platelet count 292. Sodium 138, potassium 4.5, BUN 14, creatinine 0.9, and glucose 118. ASSESSMENT: 1. Hypertensive brain bleed. 2. Seizure. 3. Hypertension. PLAN: He is now on amlodipine, metoprolol, and Catapres. We will try to keep him off the Cardene drip today. If he is able to stay off, then he can be transferred to the Stroke Unit. Job ID: [id number]
--- NOTE | 2018-11-03 11:23 | PDOC.HOSPP ---
- Subjective Encounter Date: 11/03/18 Encounter Time: 11:21 Subjective: awake, alert - Objective Vital Signs & Weight: Vital Signs (12 hours) Temp Pulse BP Pulse Ox 11/03/18 08:24 98 155/110 H 11/03/18 08:00 98.6 F 98 11/03/18 04:00 98.4 F 11/03/18 00:00 98.5 F Weight Weight 249 lb 9.012 oz Most Recent Monitor Data Heart Rate from ECG 85 NIBP 166/117 NIBP BP-Mean 133 Respiration from ECG 24 SpO2 100 I&O: 11/02/18 11/03/18 11/04/18 06:59 06:59 06:59 Intake Total 3151 1346 100 Output Total 3500 4050 Balance -349 -0133 100 Result Diagrams: 11/03/18 04:52 11/03/18 04:52 ROS - Medication Medications: Active Medications Generic Name Dose Route Start Last Admin Trade Name Freq PRN Reason Stop Dose Admin Amlodipine Besylate 10 mg 11/01/18 09:20 11/03/18 08:24 Norvasc PO 10 mg DAILY JONI Administration Clonidine 0.2 mg 11/02/18 15:06 11/03/18 08:24 Catapres PO 0.2 mg TIDPRN PRN Administration SBP GREATER THAN 160 Famotidine 20 mg 11/02/18 21:00 11/03/18 08:25 Pepcid PO 20 mg BID JONI Administration Nicardipine HCl 50 mg/ Sodium 250 mls @ 0 mls/hr 10/29/18 22:51 11/02/18 17: 50 Chloride IVPB 250 mls INF PRN Administration SBP > 150 or DBP > 90 Protocol Titrate Sodium Chloride 1,000 mls @ 0 mls/hr 10/31/18 07:54 11/02/18 05:34 Normal Saline 0.9% IV 1,000 mls .Q0M JONI Administration KVO Levetiracetam 750 mg/ 107.5 mls @ 215 mls/hr 11/01/18 21:00 11/03/18 08:24 Miscellaneous Medication 1 IVPB 107.5 mls each/ Sodium Chloride BID JONI Administration Labetalol HCl 10 mg 10/31/18 04:23 11/02/18 12:04 Normodyne SLOW IVP 10 mg Q4H PRN Administration SBP Greater Than 180 Metoprolol Tartrate 25 mg 11/02/18 09:00 11/03/18 08:24 Lopressor PO 25 mg BID JONI Administration Potassium Chloride 40 meq 11/02/18 07:28 11/02/18 12:04 Klor-Con PER TUBE 40 meq ASDIR PRN Administration FOR SERUM K+ 2.5-3.5 - Exam awake alert Neck: JVD Heart: RRR, no murmur Respiratory: CTAB Gastrointestinal: soft, non-tender, normal bowel sounds Extremities: no edema Neurological - other findings: flaccid Left hemiplegia, , 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 Hosp A/P (1) Cerebral parenchymal hemorrhage Code(s): I61.9 - NONTRAUMATIC INTRACEREBRAL HEMORRHAGE, UNSPECIFIED Status: Acute Qualifiers: Cerebral hemorrhage location: cerebral hemisphere, unspecified portion Laterality: right (2) Hemiplegia affecting left nondominant side Code(s): G81.94 - HEMIPLEGIA, UNSPECIFIED AFFECTING LEFT NONDOMINANT SIDE Status: Acute Qualifiers: Hemiplegia type: flaccid Hemiplegia etiology: late effect of cerebrovascular disease Cerebrovascular disease type: nontraumatic intracerebral hemorrhage Qualified Code(s): I69.154 - Hemiplegia and hemiparesis following nontraumatic intracerebral hemorrhage affecting left non- dominant side (3) Cocaine abuse Code(s): F14.10 - COCAINE ABUSE, UNCOMPLICATED Status: Acute (4) Hypertensive emergency Code(s): I16.1 - HYPERTENSIVE EMERGENCY Status: Acute (5) Seizure Code(s): R56.9 - UNSPECIFIED CONVULSIONS Status: Acute - Plan on iv antiepileptic iv cardene, attempting to wean to po meds PT/OT
[2018-11-03] MEDS: Acetaminophen 325 MG TAB PO PRN (12:01)
[2018-11-03] MEDS: Sodium Chloride 0.9% 1,000 ML IV SCH (16:23)
[2018-11-04] MEDS: Acetaminophen 325 MG TAB PO PRN ×2 (02:09→16:17)
[2018-11-04] MEDS: cloNIDine 0.2 MG TAB PO PRN ×2 (03:10→12:55)
[2018-11-04] MEDS: Labetalol HCl 100 MG/20 ML VIAL SLOW IVP PRN ×2 (04:54→11:42)
[2018-11-04 05:01] LABS: Anion Gap 13 mmol/L (10-20); BUN (Urea Nitrogen) 15 mg/dL (8.9-20.6); Calc. Creatinine Clearance 176 mL/min (70-130); Calcium 9.5 mg/dL (7.8-10.44); Carbon Dioxide 27 mmol/L (22-29); Chloride 101 mmol/L (98-107); Estimated GFR-MDRD Greater than 90; Glucose 128 mg/dL (70-105); Potassium 3.3 mmol/L (3.5-5.1); Sodium 138 mmol/L (136-145)
[2018-11-04 05:16] LABS: Hemoglobin 13.6 g/dL (14.0-18.0); Lymphocytes 30 % (21-51); MDiff Complete? YES; Mean Corpuscular HGB CONC 32.3 g/dL (32.0-36.0); Mean Corpuscular Hemoglobin 27.7 pg (27.0-31.0); Mean Platelet Volume 7.4 fL (7.4-10.4); Monocytes 6 % (0-10); Neutrophil 64 % (42-75); Platelet Count 340 thou/uL (130-400); Platelet Morphology Comment Appears Adequate; RBC Morphology Normal; Red Blood Cell (RBC) Count 4.89 mill/uL (4.70-6.10); White Blood Cell (WBC) Count 9.9 thou/uL (4.8-10.8)
--- NOTE | 2018-11-04 08:18 | PDOC.HOSPP ---
- Subjective Encounter Date: 11/04/18 Encounter Time: 08:15 Subjective: alert, awake no complsints - Objective Vital Signs & Weight: Vital Signs (12 hours) Temp Pulse Resp BP BP Pulse Ox 11/04/18 07:59 97 11/04/18 05:11 151/88 H 11/04/18 04:40 87 170/110 H 11/04/18 04:00 98 F 80 16 183/99 H 97 11/04/18 03:10 175/94 H 11/04/18 00:00 98.2 F 89 16 164/101 H 93 L 11/03/18 23:48 140/83 Weight Weight 249 lb 9.012 oz Most Recent Monitor Data Heart Rate from ECG 93 NIBP 145/99 NIBP BP-Mean 114 Respiration from ECG 19 SpO2 100 I&O: 11/03/18 11/04/18 11/05/18 06:59 06:59 06:59 Intake Total 1346 1200 Output Total 4050 1110 Balance -2704 90 Result Diagrams: 11/04/18 04:20 11/04/18 04:20 ROS - Medication Medications: Active Medications Generic Name Dose Route Start Last Admin Trade Name Freq PRN Reason Stop Dose Admin Acetaminophen 650 mg 11/03/18 11:45 11/04/18 02:09 Tylenol PO 650 mg Q6H PRN Administration Headache/Fever or Pain Amlodipine Besylate 10 mg 11/01/18 09:20 11/03/18 08:24 Norvasc PO 10 mg DAILY JONI Administration Clonidine 0.2 mg 11/02/18 15:06 11/04/18 03:10 Catapres PO 0.2 mg TIDPRN PRN Administration SBP GREATER THAN 160 Famotidine 20 mg 11/02/18 21:00 11/03/18 20:05 Pepcid PO 20 mg BID JONI Administration Sodium Chloride 1,000 mls @ 0 mls/hr 10/31/18 07:54 11/03/18 16:23 Normal Saline 0.9% IV 1,000 mls .Q0M JONI Administration KVO Labetalol HCl 10 mg 10/31/18 04:23 11/04/18 04:54 Normodyne SLOW IVP 10 mg Q4H PRN Administration SBP Greater Than 180 Potassium Chloride 40 meq 11/02/18 07:28 11/02/18 12:04 Klor-Con PER TUBE 40 meq ASDIR PRN Administration FOR SERUM K+ 2.5-3.5 - Exam Neck: no JVD Heart: RRR, no murmur Respiratory: CTAB Gastrointestinal: soft, non-distended, normal bowel sounds Extremities: 1+ LE edema Hosp A/P (1) Cerebral parenchymal hemorrhage Code(s): I61.9 - NONTRAUMATIC INTRACEREBRAL HEMORRHAGE, UNSPECIFIED Status: Acute Qualifiers: Cerebral hemorrhage location: cerebral hemisphere, unspecified portion Laterality: right (2) Hemiplegia affecting left nondominant side Code(s): G81.94 - HEMIPLEGIA, UNSPECIFIED AFFECTING LEFT NONDOMINANT SIDE Status: Acute Qualifiers: Hemiplegia type: flaccid Hemiplegia etiology: late effect of cerebrovascular disease Cerebrovascular disease type: nontraumatic intracerebral hemorrhage Qualified Code(s): I69.154 - Hemiplegia and hemiparesis following nontraumatic intracerebral hemorrhage affecting left non- dominant side (3) Cocaine abuse Code(s): F14.10 - COCAINE ABUSE, UNCOMPLICATED Status: Acute (4) Hypertensive emergency Code(s): I16.1 - HYPERTENSIVE EMERGENCY Status: Acute (5) Seizure Code(s): R56.9 - UNSPECIFIED CONVULSIONS Status: Acute - Plan on iv antiepilept, transition to po add po apresoline for htn control rehab screen PT/OT
[2018-11-04] MEDS ORDERED: Metoprolol Tartrate 25 MG TAB PO SCH (09:00)
[2018-11-04] MEDS ORDERED: hydrALAZINE 25 MG TAB PO SCH (09:00)
[2018-11-04] MEDS: Amlodipine 5 MG TAB PO SCH (09:07)
[2018-11-04] MEDS: Famotidine 20 MG TAB PO SCH ×2 (09:07→20:13)
[2018-11-04] MEDS: levETIRAcetam 500 MG TAB PO SCH ×2 (09:07→20:12)
[2018-11-04] MEDS: hydrALAZINE 25 MG TAB PO SCH ×2 (16:17→20:12)
[2018-11-04] MEDS: Metoprolol Tartrate 50 MG TAB PO SCH (20:12)
[2018-11-05] MEDS: Acetaminophen 325 MG TAB PO PRN (04:43)
[2018-11-05 05:26] LABS: Eosinophils 2 % (0-10); Hemoglobin 13.7 g/dL (14.0-18.0); Lymphocytes 29 % (21-51); MDiff Complete? YES; Mean Corpuscular HGB CONC 32.9 g/dL (32.0-36.0); Mean Corpuscular Hemoglobin 28.2 pg (27.0-31.0); Mean Corpuscular Volume 85.8 fL (78.0-98.0); Mean Platelet Volume 7.1 fL (7.4-10.4); Monocytes 10 % (0-10); Neutrophil 59 % (42-75); Platelet Count 353 thou/uL (130-400); Platelet Morphology Comment Appears Adequate; Red Blood Cell (RBC) Count 4.84 mill/uL (4.70-6.10); White Blood Cell (WBC) Count 9.8 thou/uL (4.8-10.8)
[2018-11-05 05:40] LABS: Anion Gap 13 mmol/L (10-20); BUN (Urea Nitrogen) 15 mg/dL (8.9-20.6); Calc. Creatinine Clearance 167 mL/min (70-130); Calcium 10.3 mg/dL (7.8-10.44); Carbon Dioxide 29 mmol/L (22-29); Chloride 101 mmol/L (98-107); Estimated GFR-MDRD Greater than 90; Glucose 119 mg/dL (70-105); Potassium 3.5 mmol/L (3.5-5.1); Sodium 139 mmol/L (136-145)
[2018-11-05] MEDS ORDERED: Minoxidil 2.5 MG TAB PO SCH (09:00)
[2018-11-05] MEDS: Amlodipine 5 MG TAB PO SCH (09:08)
[2018-11-05] MEDS: levETIRAcetam 500 MG TAB PO SCH ×2 (09:17→20:16)
[2018-11-05] MEDS: Metoprolol Tartrate 50 MG TAB PO SCH ×2 (09:18→20:16)
[2018-11-05] MEDS: hydrALAZINE 25 MG TAB PO SCH ×4 (09:18→20:16)
[2018-11-05] MEDS: Famotidine 20 MG TAB PO SCH ×2 (09:18→20:17)
--- NOTE | 2018-11-05 10:00 | PDOC.HOSPP ---
- Subjective Encounter Date: 11/05/18 Encounter Time: 09:57 Subjective: having tremors in L leg, OW no specific problems - Objective Vital Signs & Weight: Vital Signs (12 hours) Temp Pulse Resp BP BP Pulse Ox 11/05/18 09:18 97 174/108 H 11/05/18 09:08 97 174/108 H 11/05/18 08:00 98 F 97 17 160/97 H 97 11/05/18 04:00 98.0 F 84 19 136/78 94 L 11/05/18 00:00 98.6 F 89 18 148/96 H 100 Weight Weight 249 lb 9.012 oz Most Recent Monitor Data Heart Rate from ECG 93 NIBP 145/99 NIBP BP-Mean 114 Respiration from ECG 19 SpO2 100 I&O: 11/04/18 11/05/18 11/06/18 06:59 06:59 06:59 Intake Total 1200 1760 Output Total 1110 1600 Balance 90 160 Result Diagrams: 11/05/18 05:08 11/05/18 05:08 ROS - Medication Medications: Active Medications Generic Name Dose Route Start Last Admin Trade Name Freq PRN Reason Stop Dose Admin Acetaminophen 650 mg 11/03/18 11:45 11/05/18 04:43 Tylenol PO 650 mg Q6H PRN Administration Headache/Fever or Pain Amlodipine Besylate 10 mg 11/01/18 09:20 11/05/18 09:08 Norvasc PO 10 mg DAILY JONI Administration Clonidine 0.2 mg 11/02/18 15:06 11/04/18 12:55 Catapres PO 0.2 mg TIDPRN PRN Administration SBP GREATER THAN 160 Famotidine 20 mg 11/02/18 21:00 11/05/18 09:18 Pepcid PO 20 mg BID JONI Administration Hydralazine HCl 25 mg 11/04/18 17:00 11/05/18 09:18 Apresoline PO 25 mg QID JONI Administration Labetalol HCl 10 mg 10/31/18 04:23 11/04/18 11:42 Normodyne SLOW IVP 10 mg Q4H PRN Administration SBP Greater Than 180 Levetiracetam 750 mg 11/04/18 09:00 11/05/18 09:17 Keppra PO 750 mg BID JONI Administration Metoprolol Tartrate 50 mg 11/04/18 21:00 11/05/18 09:18 Lopressor PO 50 mg BID JONI Administration Potassium Chloride 40 meq 11/02/18 07:28 11/02/18 12:04 Klor-Con PER TUBE 40 meq ASDIR PRN Administration FOR SERUM K+ 2.5-3.5 Sodium Chloride 10 ml 10/29/18 19:35 11/05/18 09:19 Flush - Normal Saline IVF 10 ml PRN PRN Administration Saline Flush - Exam Neck: no JVD Heart: RRR, no murmur Respiratory: CTAB Gastrointestinal: soft, non-tender, normal bowel sounds Extremities: 1+ LE edema Neurological: hemiplegia Neurological - other findings: fasciculations vs seizures, focal in left leg Hosp A/P (1) Cerebral parenchymal hemorrhage Code(s): I61.9 - NONTRAUMATIC INTRACEREBRAL HEMORRHAGE, UNSPECIFIED Status: Acute Qualifiers: Cerebral hemorrhage location: cerebral hemisphere, unspecified portion Laterality: right (2) Hemiplegia affecting left nondominant side Code(s): G81.94 - HEMIPLEGIA, UNSPECIFIED AFFECTING LEFT NONDOMINANT SIDE Status: Acute Qualifiers: Hemiplegia type: flaccid Hemiplegia etiology: late effect of cerebrovascular disease Cerebrovascular disease type: nontraumatic intracerebral hemorrhage Qualified Code(s): I69.154 - Hemiplegia and hemiparesis following nontraumatic intracerebral hemorrhage affecting left non- dominant side (3) Cocaine abuse Code(s): F14.10 - COCAINE ABUSE, UNCOMPLICATED Status: Acute (4) Hypertensive emergency Code(s): I16.1 - HYPERTENSIVE EMERGENCY Status: Acute (5) Seizure Code(s): R56.9 - UNSPECIFIED CONVULSIONS Status: Acute - Plan on po keppra, poss focal mtor seizures L leg- check keppra level BP still uncontrolled add minoxydil rehab screen PT/OT
--- NOTE | 2018-11-05 10:12 | PDOC.EVN ---
Event Note - Event Note Event Note: will give iv keppra after keppra level drawn
[2018-11-05] MEDS ORDERED: levETIRAcetam 500 MG in Sodium Chloride 0.9% 100 ML IVPB SCH (10:15)
[2018-11-05] MEDS ORDERED: Lorazepam 0.5 MG TAB PO SCH (11:00)
[2018-11-05] MEDS: Labetalol HCl 100 MG/20 ML VIAL SLOW IVP PRN (17:43)
[2018-11-05] MEDS: Lorazepam 1 MG TAB PO PRN (18:34)
[2018-11-05] MEDS: cloNIDine 0.2 MG TAB PO PRN (19:33)
[2018-11-06] MEDS: Lorazepam 1 MG TAB PO PRN ×2 (00:50→10:02)
[2018-11-06] MEDS: cloNIDine 0.2 MG TAB PO PRN ×3 (03:34→23:37)
[2018-11-06] MEDS: Labetalol HCl 100 MG/20 ML VIAL SLOW IVP PRN (04:34)
[2018-11-06 06:01] LABS: Hemoglobin 14.2 g/dL (14.0-18.0); Mean Corpuscular HGB CONC 33.7 g/dL (32.0-36.0); Mean Corpuscular Hemoglobin 28.7 pg (27.0-31.0); Mean Corpuscular Volume 85.4 fL (78.0-98.0); Mean Platelet Volume 7.4 fL (7.4-10.4); Platelet Count 338 thou/uL (130-400); RBC Distribution Width 13.3 % (11.5-14.5); Red Blood Cell (RBC) Count 4.95 mill/uL (4.70-6.10); White Blood Cell (WBC) Count 9.2 thou/uL (4.8-10.8)
[2018-11-06 06:02] LABS: Eosinophils 1 % (0-10); Lymphocytes 17 % (21-51); MDiff Complete? YES; Monocytes 6 % (0-10); Neutrophil 76 % (42-75); Platelet Morphology Comment Appears Adequate; RBC Morphology Normal
[2018-11-06 06:11] LABS: Anion Gap 17 mmol/L (10-20); BUN (Urea Nitrogen) 19 mg/dL (8.9-20.6); Calc. Creatinine Clearance 150 mL/min (70-130); Calcium 10.4 mg/dL (7.8-10.44); Carbon Dioxide 25 mmol/L (22-29); Chloride 102 mmol/L (98-107); Estimated GFR-MDRD Greater than 90; Glucose 129 mg/dL (70-105); Potassium 3.5 mmol/L (3.5-5.1); Sodium 140 mmol/L (136-145)
--- NOTE | 2018-11-06 07:11 | PDOC.HOSPP ---
- Subjective Encounter Date: 11/06/18 Encounter Time: 07:11 Subjective: alert, no further jerking motions left leg - Objective Vital Signs & Weight: Vital Signs (12 hours) Temp Pulse Resp BP BP Pulse Ox 11/06/18 05:11 144/86 H 11/06/18 04:34 166/98 H 11/06/18 04:00 97.9 F 102 H 18 191/107 H 98 11/06/18 03:34 191/105 H 11/06/18 00:00 97.8 F 94 18 130/94 H 97 11/05/18 22:10 92 133/81 11/05/18 20:16 100 180/104 H 11/05/18 20:00 98.1 F 104 H 18 180/96 H 96 11/05/18 19:33 181/102 H Weight Weight 249 lb 9.012 oz Most Recent Monitor Data Heart Rate from ECG 93 NIBP 145/99 NIBP BP-Mean 114 Respiration from ECG 19 SpO2 100 I&O: 11/05/18 11/06/18 11/07/18 06:59 06:59 06:59 Intake Total 1760 Output Total 1600 Balance 160 Result Diagrams: 11/06/18 04:59 11/06/18 04:59 ROS - Medication Medications: Active Medications Generic Name Dose Route Start Last Admin Trade Name Freq PRN Reason Stop Dose Admin Acetaminophen 650 mg 11/03/18 11:45 11/05/18 04:43 Tylenol PO 650 mg Q6H PRN Administration Headache/Fever or Pain Amlodipine Besylate 10 mg 11/01/18 09:20 11/05/18 09:08 Norvasc PO 10 mg DAILY JONI Administration Clonidine 0.2 mg 11/02/18 15:06 11/06/18 03:34 Catapres PO 0.2 mg TIDPRN PRN Administration SBP GREATER THAN 160 Famotidine 20 mg 11/02/18 21:00 11/05/18 20:17 Pepcid PO 20 mg BID JONI Administration Hydralazine HCl 25 mg 11/04/18 17:00 11/05/18 20:16 Apresoline PO 25 mg QID JONI Administration Labetalol HCl 10 mg 10/31/18 04:23 11/06/18 04:34 Normodyne SLOW IVP 10 mg Q4H PRN Administration SBP Greater Than 180 Levetiracetam 1,000 mg 11/05/18 21:00 11/05/18 20:16 Keppra PO 1,000 mg BID JONI Administration Lorazepam 1 mg 11/05/18 17:43 11/06/18 00:50 Ativan PO 1 mg Q6H PRN Administration Anxiety Metoprolol Tartrate 50 mg 11/04/18 21:00 11/05/18 20:16 Lopressor PO 50 mg BID JONI Administration Sodium Chloride 10 ml 10/29/18 19:35 11/05/18 09:19 Flush - Normal Saline IVF 10 ml PRN PRN Administration Saline Flush - Exam Neck: JVD Heart: RRR, no murmur Respiratory: CTAB Gastrointestinal: soft, non-tender, normal bowel sounds Extremities: no edema Neurological: hemiplegia Neurological - other findings: left, dense Hosp A/P (1) Cerebral parenchymal hemorrhage Code(s): I61.9 - NONTRAUMATIC INTRACEREBRAL HEMORRHAGE, UNSPECIFIED Status: Acute Qualifiers: Cerebral hemorrhage location: cerebral hemisphere, unspecified portion Laterality: right (2) Hemiplegia affecting left nondominant side Code(s): G81.94 - HEMIPLEGIA, UNSPECIFIED AFFECTING LEFT NONDOMINANT SIDE Status: Acute Qualifiers: Hemiplegia type: flaccid Hemiplegia etiology: late effect of cerebrovascular disease Cerebrovascular disease type: nontraumatic intracerebral hemorrhage Qualified Code(s): I69.154 - Hemiplegia and hemiparesis following nontraumatic intracerebral hemorrhage affecting left non- dominant side (3) Cocaine abuse Code(s): F14.10 - COCAINE ABUSE, UNCOMPLICATED Status: Acute (4) Hypertensive emergency Code(s): I16.1 - HYPERTENSIVE EMERGENCY Status: Acute (5) Seizure Code(s): R56.9 - UNSPECIFIED CONVULSIONS Status: Acute - Plan deizures-stable on increased dose keppre BP improved, increase minoxydil to 5mg daily anxiety, insomnia improved on ativan rehab screen PT/OT
[2018-11-06] MEDS: hydrALAZINE 25 MG TAB PO SCH ×4 (10:01→22:01)
[2018-11-06] MEDS: Famotidine 20 MG TAB PO SCH ×2 (10:01→22:02)
[2018-11-06] MEDS: Amlodipine 5 MG TAB PO SCH (10:01)
[2018-11-06] MEDS: Acetaminophen 325 MG TAB PO PRN (10:02)
[2018-11-06] MEDS: Metoprolol Tartrate 50 MG TAB PO SCH ×2 (10:02→22:02)
[2018-11-06] MEDS: Minoxidil 2.5 MG TAB PO SCH (10:02)
[2018-11-06] MEDS: levETIRAcetam 500 MG TAB PO SCH ×2 (10:02→22:00)
[2018-11-07 04:39] LABS: Anion Gap 16 mmol/L (10-20); BUN (Urea Nitrogen) 19 mg/dL (8.9-20.6); Calc. Creatinine Clearance 143 mL/min (70-130); Calcium 10.5 mg/dL (7.8-10.44); Carbon Dioxide 22 mmol/L (22-29); Chloride 101 mmol/L (98-107); Estimated GFR-MDRD 89; Glucose 140 mg/dL (70-105); Potassium 3.4 mmol/L (3.5-5.1); Sodium 136 mmol/L (136-145)
[2018-11-07 04:41] LABS: Eosinophils 3 % (0-10); Hemoglobin 14.8 g/dL (14.0-18.0); Lymphocytes 28 % (21-51); MDiff Complete? YES; Mean Corpuscular HGB CONC 32.4 g/dL (32.0-36.0); Mean Corpuscular Hemoglobin 27.6 pg (27.0-31.0); Mean Corpuscular Volume 85.2 fL (78.0-98.0); Mean Platelet Volume 7.4 fL (7.4-10.4); Monocytes 11 % (0-10); Neutrophil 58 % (42-75); Platelet Count 353 thou/uL (130-400); RBC Distribution Width 13.1 % (11.5-14.5); Red Blood Cell (RBC) Count 5.35 mill/uL (4.70-6.10); White Blood Cell (WBC) Count 8.9 thou/uL (4.8-10.8)
[2018-11-07] MEDS: Acetaminophen 325 MG TAB PO PRN (04:43)
[2018-11-07] MEDS: Labetalol HCl 100 MG/20 ML VIAL SLOW IVP PRN (08:00)
[2018-11-07] MEDS ORDERED: Potassium Chloride 20 MEQ TAB PO SCH (08:00)
[2018-11-07] MEDS: levETIRAcetam 500 MG TAB PO SCH ×2 (08:57→21:24)
[2018-11-07] MEDS: Amlodipine 5 MG TAB PO SCH (08:57)
[2018-11-07] MEDS: hydrALAZINE 25 MG TAB PO SCH ×4 (08:58→21:25)
[2018-11-07] MEDS: Famotidine 20 MG TAB PO SCH ×2 (08:58→21:25)
[2018-11-07] MEDS: Metoprolol Tartrate 50 MG TAB PO SCH ×2 (08:59→21:25)
[2018-11-07] MEDS: Lorazepam 1 MG TAB PO PRN ×2 (08:59→18:21)
[2018-11-07] MEDS: Minoxidil 2.5 MG TAB PO SCH (08:59)
--- NOTE | 2018-11-07 13:47 | PDOC.HOSPP ---
- Subjective Encounter Date: 11/07/18 Encounter Time: 13:45 Subjective: Mr. St was seen today in follow-up of Hypertensive crisis. He does not have any new complaints. - Objective Vital Signs & Weight: Vital Signs (12 hours) Temp Pulse Resp BP BP Pulse Ox 11/07/18 13:21 145/85 H 11/07/18 11:51 98.0 F 94 18 178/108 H 98 11/07/18 10:55 145/95 H 11/07/18 08:58 101 H 181/95 H 11/07/18 08:57 101 H 181/95 H 11/07/18 08:00 98.0 F 96 18 212/115 H 212/115 H 97 11/07/18 04:46 98.1 F 88 16 156/86 H 96 Weight Admit Weight 249 lb 9.012 oz Weight 249 lb 9.012 oz Most Recent Monitor Data Heart Rate from ECG 93 NIBP 145/99 NIBP BP-Mean 114 Respiration from ECG 19 SpO2 100 I&O: 11/06/18 11/07/18 11/08/18 06:59 06:59 06:59 Intake Total 1900 240 Balance 1900 240 Result Diagrams: 11/07/18 03:49 11/07/18 03:49 ROS - Medication Medications: Active Medications Generic Name Dose Route Start Last Admin Trade Name Freq PRN Reason Stop Dose Admin Acetaminophen 650 mg 11/03/18 11:45 11/07/18 04:43 Tylenol PO 650 mg Q6H PRN Administration Headache/Fever or Pain Amlodipine Besylate 10 mg 11/01/18 09:20 11/07/18 08:57 Norvasc PO 10 mg DAILY JONI Administration Clonidine 0.2 mg 11/02/18 15:06 11/06/18 23:37 Catapres PO 0.2 mg TIDPRN PRN Administration SBP GREATER THAN 160 Famotidine 20 mg 11/02/18 21:00 11/07/18 08:58 Pepcid PO 20 mg BID JONI Administration Hydralazine HCl 25 mg 11/04/18 17:00 11/07/18 08:58 Apresoline PO 25 mg QID JONI Administration Labetalol HCl 10 mg 10/31/18 04:23 11/07/18 08:00 Normodyne SLOW IVP 10 mg Q4H PRN Administration SBP Greater Than 180 Levetiracetam 1,000 mg 11/05/18 21:00 11/07/18 08:57 Keppra PO 1,000 mg BID JONI Administration Lorazepam 1 mg 11/05/18 17:43 11/07/18 08:59 Ativan PO 1 mg Q6H PRN Administration Anxiety Metoprolol Tartrate 50 mg 11/04/18 21:00 11/07/18 08:59 Lopressor PO 50 mg BID JONI Administration Minoxidil 5 mg 11/06/18 09:00 11/07/18 08:59 Minoxidil PO 5 mg DAILY JONI Administration Sodium Chloride 10 ml 10/29/18 19:35 11/05/18 09:19 Flush - Normal Saline IVF 10 ml PRN PRN Administration Saline Flush - Exam NAD Neck: supple, symmetric, no JVD, no thyromegaly, no lymphadenopathy Heart: RRR, no murmur, no gallops, no rubs, normal peripheral pulses Respiratory: CTAB, no wheezes, no rales, no ronchi, normal chest expansion Gastrointestinal: soft, non-tender, non-distended, normal bowel sounds, no palpable masses, no hepatomegaly Extremities: no cyanosis Neurological: hemiplegia (Left sided weakness) Hosp A/P (1) Hypertensive emergency Code(s): I16.1 - HYPERTENSIVE EMERGENCY Status: Acute (2) Seizure Code(s): R56.9 - UNSPECIFIED CONVULSIONS Status: Acute - Plan * Hypertensive Crisis /Emergency- with ICH- his blood pressure continues to be a bit labile * Will add Lisinopril- HCT to see if we can achieve better control * Seizure- continue Keppra * Will liberalize the parameters for PT * Awaiting possible correction placement
[2018-11-07] MEDS ORDERED: Lisinopril/Hydrochlorothiazide 10 mg/12.5 mg Tablet PO SCH (14:00)
[2018-11-08] MEDS: Labetalol HCl 100 MG/20 ML VIAL SLOW IVP PRN (00:02)
[2018-11-08] MEDS: Lorazepam 1 MG TAB PO PRN ×3 (00:31→21:29)
[2018-11-08] MEDS: cloNIDine 0.2 MG TAB PO PRN ×2 (00:45→21:29)
[2018-11-08 05:40] LABS: Anion Gap 13 mmol/L (10-20); BUN (Urea Nitrogen) 19 mg/dL (8.9-20.6); Calc. Creatinine Clearance 149 mL/min (70-130); Calcium 9.8 mg/dL (7.8-10.44); Carbon Dioxide 27 mmol/L (22-29); Chloride 100 mmol/L (98-107); Estimated GFR-MDRD Greater than 90; Glucose 106 mg/dL (70-105); Potassium 3.7 mmol/L (3.5-5.1); Sodium 136 mmol/L (136-145)
[2018-11-08 06:13] LABS: Band 1 % (5-11); Eosinophils 3 % (0-10); Hemoglobin 13.4 g/dL (14.0-18.0); Lymphocytes 32 % (21-51); MDiff Complete? YES; Mean Corpuscular HGB CONC 32.7 g/dL (32.0-36.0); Mean Corpuscular Hemoglobin 27.8 pg (27.0-31.0); Mean Corpuscular Volume 84.9 fL (78.0-98.0); Mean Platelet Volume 7.5 fL (7.4-10.4); Monocytes 13 % (0-10); Neutrophil 50 % (42-75); Platelet Count 339 thou/uL (130-400); Platelet Morphology Comment Appears Adequate; Reactive Lymphocytes 1 % (0-10); Red Blood Cell (RBC) Count 4.83 mill/uL (4.70-6.10); White Blood Cell (WBC) Count 7.1 thou/uL (4.8-10.8)
[2018-11-08] MEDS: Acetaminophen 325 MG TAB PO PRN (08:24)
[2018-11-08] MEDS: Lisinopril/Hydrochlorothiazide 10 mg/12.5 mg Tablet PO SCH (08:25)
[2018-11-08] MEDS: Minoxidil 2.5 MG TAB PO SCH (08:26)
[2018-11-08] MEDS: levETIRAcetam 500 MG TAB PO SCH ×2 (08:27→20:48)
[2018-11-08] MEDS: Famotidine 20 MG TAB PO SCH ×2 (08:27→20:48)
[2018-11-08] MEDS: hydrALAZINE 25 MG TAB PO SCH ×4 (08:27→20:48)
[2018-11-08] MEDS: Amlodipine 5 MG TAB PO SCH (08:27)
[2018-11-08] MEDS: Metoprolol Tartrate 50 MG TAB PO SCH ×2 (08:27→20:48)
--- NOTE | 2018-11-08 12:00 | EKG ---
Test Reason : STROKE Blood Pressure : / mmHG Vent. Rate : 104 BPM Atrial Rate : 104 BPM P-R Int : 146 ms QRS Dur : 086 ms QT Int : 366 ms P-R-T Axes : 010 016 170 degrees QTc Int : 481 ms Sinus tachycardia Possible Left atrial enlargement Left ventricular hypertrophy T wave abnormality, consider inferolateral ischemia Abnormal ECG Confirmed by PREMA PIRES DO ([id number]), continuity editor MIKE ALVAREZ ([id number] on 11/08/2018 12:00:11 PM Referred By: Confirmed By:PREMA PIRES DO
[2018-11-08] MEDS ORDERED: Tetrahydrozoline 0.05% OPTH 15 ML BOT EA EYE PRN (16:15)
--- NOTE | 2018-11-08 18:04 | PDOC.HOSPP ---
- Subjective Encounter Date: 11/08/18 Encounter Time: 18:02 Subjective: Mr. St was seen today in follow-up of hypertensive crisis. He does not have any complaints today. - Objective Vital Signs & Weight: Vital Signs (12 hours) Temp Pulse Pulse Pulse Resp BP BP 11/08/18 17:29 104 H 11/08/18 15:37 98 F 96 18 11/08/18 14:36 93 11/08/18 12:00 98.4 F 95 18 11/08/18 10:08 89 92 164/96 H 154/99 H 11/08/18 08:35 11/08/18 08:27 89 11/08/18 08:25 89 11/08/18 07:42 98.0 F 93 18 BP Pulse Ox 11/08/18 17:29 11/08/18 15:37 144/86 H 96 11/08/18 14:36 11/08/18 12:00 139/75 98 11/08/18 10:08 11/08/18 08:35 98 11/08/18 08:27 11/08/18 08:25 11/08/18 07:42 133/90 98 Weight Admit Weight 249 lb 9.012 oz Weight 249 lb 9.012 oz Most Recent Monitor Data Heart Rate from ECG 93 NIBP 145/99 NIBP BP-Mean 114 Respiration from ECG 19 SpO2 100 I&O: 11/07/18 11/08/18 11/09/18 06:59 06:59 06:59 Intake Total 1900 1080 480 Output Total 1200 725 Balance 1900 120 -245 Result Diagrams: 11/08/18 04:51 11/08/18 04:51 ROS - Medication Medications: Active Medications Generic Name Dose Route Start Last Admin Trade Name Freq PRN Reason Stop Dose Admin Acetaminophen 650 mg 11/03/18 11:45 11/08/18 08:24 Tylenol PO 650 mg Q6H PRN Administration Headache/Fever or Pain Amlodipine Besylate 10 mg 11/01/18 09:20 11/08/18 08:27 Norvasc PO 10 mg DAILY JONI Administration Clonidine 0.2 mg 11/02/18 15:06 11/08/18 00:45 Catapres PO 0.2 mg TIDPRN PRN Administration SBP GREATER THAN 160 Famotidine 20 mg 11/02/18 21:00 11/08/18 08:27 Pepcid PO 20 mg BID JONI Administration Lisinopril/HCTZ 1 tab 11/08/18 09:00 11/08/18 08:25 Prinizide 10-12.5 PO 1 tab DAILY JONI Administration Hydralazine HCl 25 mg 11/04/18 17:00 11/08/18 17:29 Apresoline PO 25 mg QID JONI Administration Labetalol HCl 10 mg 10/31/18 04:23 11/08/18 00:02 Normodyne SLOW IVP 10 mg Q4H PRN Administration SBP Greater Than 180 Levetiracetam 1,000 mg 11/05/18 21:00 11/08/18 08:27 Keppra PO 1,000 mg BID JONI Administration Lorazepam 1 mg 11/05/18 17:43 11/08/18 08:24 Ativan PO 1 mg Q6H PRN Administration Anxiety Metoprolol Tartrate 50 mg 11/04/18 21:00 11/08/18 08:27 Lopressor PO 50 mg BID JONI Administration Minoxidil 5 mg 11/06/18 09:00 11/08/18 08:26 Minoxidil PO 5 mg DAILY JONI Administration Sodium Chloride 10 ml 10/29/18 19:35 11/08/18 08:28 Flush - Normal Saline IVF 10 ml PRN PRN Administration Saline Flush - Exam Eye: PERRL Heart: RRR, no murmur, no gallops, no rubs, normal peripheral pulses Respiratory: CTAB, no wheezes, no rales, no ronchi, normal chest expansion, no tachypnea, normal percussion Gastrointestinal: soft, non-tender, non-distended, normal bowel sounds, no palpable masses, no hepatomegaly, no splenomegaly Extremities: no cyanosis, no clubbing Neurological: hemiplegia (Left hemiplegia) Hosp A/P (1) Hypertensive emergency Code(s): I16.1 - HYPERTENSIVE EMERGENCY Status: Acute (2) Seizure Code(s): R56.9 - UNSPECIFIED CONVULSIONS Status: Acute - Plan * Hypertensive Crisis /Emergency- resolved * HTN- blood pressure appears to have improved some * Seizure- continue Keppra * Continue PT * Awaiting possible assisted placement
[2018-11-08] MEDS: Docusate 100 MG CAP PO SCH (20:47)
--- NOTE | 2018-11-09 06:22 | PDOC.EVN ---
Event Note - Event Note Event Note: RN called - Patient refusing labs this AM
[2018-11-09] MEDS: Amlodipine 5 MG TAB PO SCH (08:57)
[2018-11-09] MEDS: levETIRAcetam 500 MG TAB PO SCH ×2 (08:58→21:27)
[2018-11-09] MEDS: Docusate 100 MG CAP PO SCH ×2 (08:58→21:28)
[2018-11-09] MEDS: hydrALAZINE 25 MG TAB PO SCH ×4 (08:58→21:29)
[2018-11-09] MEDS: Famotidine 20 MG TAB PO SCH ×2 (08:58→21:28)
[2018-11-09] MEDS: Lisinopril/Hydrochlorothiazide 10 mg/12.5 mg Tablet PO SCH (08:58)
[2018-11-09] MEDS: Minoxidil 2.5 MG TAB PO SCH (08:59)
[2018-11-09] MEDS: Metoprolol Tartrate 50 MG TAB PO SCH ×2 (08:59→21:28)
[2018-11-09] MEDS: Acetaminophen 325 MG TAB PO PRN (08:59)
[2018-11-09] MEDS: Lorazepam 1 MG TAB PO PRN ×3 (08:59→23:58)
--- NOTE | 2018-11-09 13:53 | PDOC.HOSPP ---
- Subjective Encounter Date: 11/09/18 Encounter Time: 13:52 Subjective: Mr. St was seen today in follow-up of Hypertensive crisis. He is a bit drowsy this morning. His says he gets nervous at night, and occasionally will ask for ativan. She attributes the drowsiness to this. - Objective Vital Signs & Weight: Vital Signs (12 hours) Temp Pulse Resp BP BP Pulse Ox 11/09/18 13:39 89 123/68 11/09/18 12:28 98.3 F 89 18 123/68 97 11/09/18 08:58 102 H 143/69 H 11/09/18 08:57 102 H 143/69 H 11/09/18 08:00 98.3 F 102 H 18 143/69 H 97 11/09/18 07:50 95 11/09/18 04:00 98.3 F 90 16 111/60 100 Weight Admit Weight 249 lb 9.012 oz Weight 249 lb 9.012 oz Most Recent Monitor Data Heart Rate from ECG 93 NIBP 145/99 NIBP BP-Mean 114 Respiration from ECG 19 SpO2 100 I&O: 11/08/18 11/09/18 11/10/18 06:59 06:59 06:59 Intake Total 1080 1130 600 Output Total 1200 725 Balance -120 405 600 Result Diagrams: 11/08/18 04:51 11/08/18 04:51 ROS - Medication Medications: Active Medications Generic Name Dose Route Start Last Admin Trade Name Freq PRN Reason Stop Dose Admin Acetaminophen 650 mg 11/03/18 11:45 11/09/18 08:59 Tylenol PO 650 mg Q6H PRN Administration Headache/Fever or Pain Amlodipine Besylate 10 mg 11/01/18 09:20 11/09/18 08:57 Norvasc PO 10 mg DAILY JONI Administration Clonidine 0.2 mg 11/02/18 15:06 11/08/18 21:29 Catapres PO 0.2 mg TIDPRN PRN Administration SBP GREATER THAN 160 Docusate Sodium 100 mg 11/08/18 21:00 11/09/18 08:58 Colace PO 100 mg BID JONI Administration Famotidine 20 mg 11/02/18 21:00 11/09/18 08:58 Pepcid PO 20 mg BID JONI Administration Lisinopril/HCTZ 1 tab 11/08/18 09:00 11/09/18 08:58 Prinizide 10-12.5 PO 1 tab DAILY JONI Administration Hydralazine HCl 25 mg 11/04/18 17:00 11/09/18 13:39 Apresoline PO 25 mg QID JONI Administration Labetalol HCl 10 mg 10/31/18 04:23 11/08/18 00:02 Normodyne SLOW IVP 10 mg Q4H PRN Administration SBP Greater Than 180 Levetiracetam 1,000 mg 11/05/18 21:00 11/09/18 08:58 Keppra PO 1,000 mg BID JONI Administration Lorazepam 1 mg 11/05/18 17:43 11/09/18 08:59 Ativan PO 1 mg Q6H PRN Administration Anxiety Metoprolol Tartrate 50 mg 11/04/18 21:00 11/09/18 08:59 Lopressor PO 50 mg BID JONI Administration Minoxidil 5 mg 11/06/18 09:00 11/09/18 08:59 Minoxidil PO 5 mg DAILY JONI Administration Sodium Chloride 10 ml 10/29/18 19:35 11/08/18 08:28 Flush - Normal Saline IVF 10 ml PRN PRN Administration Saline Flush - Exam Eye: PERRL, anicteric sclera Heart: RRR, no murmur, no gallops, no rubs, normal peripheral pulses Respiratory: CTAB, no wheezes, no rales, no ronchi, normal chest expansion, no tachypnea, normal percussion, rales Gastrointestinal: soft, non-tender, non-distended, normal bowel sounds, no palpable masses, no hepatomegaly, no splenomegaly Extremities: no cyanosis, no clubbing Neurological: no new deficit, hemiplegia (Left hemiplegia) Hosp A/P (1) Hypertensive emergency Code(s): I16.1 - HYPERTENSIVE EMERGENCY Status: Acute (2) Seizure Code(s): R56.9 - UNSPECIFIED CONVULSIONS Status: Acute - Plan * Hypertensive Crisis /Emergency- resolved * Will reduce blood draws * HTN- blood pressure is improving * Seizure- continue Keppra * Continue PT * Awaiting possible [facility] placement
[2018-11-09] MEDS: Labetalol HCl 100 MG/20 ML VIAL SLOW IVP PRN (23:57)
[2018-11-10] MEDS: Lorazepam 1 MG TAB PO PRN ×2 (06:12→20:54)
[2018-11-10] MEDS: Amlodipine 5 MG TAB PO SCH (08:34)
[2018-11-10] MEDS: Docusate 100 MG CAP PO SCH ×2 (08:35→20:54)
[2018-11-10] MEDS: levETIRAcetam 500 MG TAB PO SCH ×2 (08:35→20:54)
[2018-11-10] MEDS: hydrALAZINE 25 MG TAB PO SCH ×4 (08:35→20:54)
[2018-11-10] MEDS: Famotidine 20 MG TAB PO SCH ×2 (08:35→20:54)
[2018-11-10] MEDS: Lisinopril/Hydrochlorothiazide 10 mg/12.5 mg Tablet PO SCH (08:36)
[2018-11-10] MEDS: Minoxidil 2.5 MG TAB PO SCH (08:38)
[2018-11-10] MEDS: Metoprolol Tartrate 50 MG TAB PO SCH ×2 (08:38→20:54)
--- NOTE | 2018-11-10 08:52 | PDOC.HOSPP ---
- Subjective Encounter Date: 11/10/18 Encounter Time: 08:50 Subjective: Mr. St was seen today in follow-up of hypertensive crisis. He does not have any complaints. His noted a headache last night. He was given ativan this morning, and is a bit drowsy. - Objective Vital Signs & Weight: Vital Signs (12 hours) Temp Pulse Resp BP BP Pulse Ox 11/10/18 08:36 113 H 184/108 H 11/10/18 08:35 113 H 184/108 H 11/10/18 08:34 113 H 184/108 H 11/10/18 07:42 98.4 F 113 H 18 184/108 H 99 11/10/18 03:54 98.4 F 94 18 126/77 97 11/10/18 00:00 98.7 F 101 H 18 160/102 H 94 L 11/09/18 23:57 110 H 141/96 H 11/09/18 21:29 110 H 141/96 H Weight Admit Weight 249 lb 9.012 oz Weight 249 lb 9.012 oz Most Recent Monitor Data Heart Rate from ECG 93 NIBP 145/99 NIBP BP-Mean 114 Respiration from ECG 19 SpO2 100 I&O: 11/09/18 11/10/18 11/11/18 06:59 06:59 06:59 Intake Total 1130 900 Output Total 725 Balance 405 900 Result Diagrams: 11/08/18 04:51 11/08/18 04:51 ROS - Medication Medications: Active Medications Generic Name Dose Route Start Last Admin Trade Name Freq PRN Reason Stop Dose Admin Acetaminophen 650 mg 11/03/18 11:45 11/09/18 08:59 Tylenol PO 650 mg Q6H PRN Administration Headache/Fever or Pain Amlodipine Besylate 10 mg 11/01/18 09:20 11/10/18 08:34 Norvasc PO 10 mg DAILY JONI Administration Clonidine 0.2 mg 11/02/18 15:06 11/08/18 21:29 Catapres PO 0.2 mg TIDPRN PRN Administration SBP GREATER THAN 160 Docusate Sodium 100 mg 11/08/18 21:00 11/10/18 08:35 Colace PO 100 mg BID JONI Administration Famotidine 20 mg 11/02/18 21:00 11/10/18 08:35 Pepcid PO 20 mg BID JONI Administration Lisinopril/HCTZ 1 tab 11/08/18 09:00 11/10/18 08:36 Prinizide 10-12.5 PO 1 tab DAILY JONI Administration Hydralazine HCl 25 mg 11/04/18 17:00 11/10/18 08:35 Apresoline PO 25 mg QID JONI Administration Labetalol HCl 10 mg 10/31/18 04:23 11/09/18 23:57 Normodyne SLOW IVP 10 mg Q4H PRN Administration SBP Greater Than 180 Levetiracetam 1,000 mg 11/05/18 21:00 11/10/18 08:35 Keppra PO 1,000 mg BID JONI Administration Lorazepam 1 mg 11/05/18 17:43 11/10/18 06:12 Ativan PO 1 mg Q6H PRN Administration Anxiety Metoprolol Tartrate 50 mg 11/04/18 21:00 11/10/18 08:38 Lopressor PO 50 mg BID JONI Administration Minoxidil 5 mg 11/06/18 09:00 11/10/18 08:38 Minoxidil PO 5 mg DAILY JONI Administration Sodium Chloride 10 ml 10/29/18 19:35 11/09/18 21:28 Flush - Normal Saline IVF 10 ml PRN PRN Administration Saline Flush - Exam Eye: PERRL, anicteric sclera Heart: RRR, no murmur, no gallops, no rubs, normal peripheral pulses Respiratory: CTAB, no wheezes, no rales, no ronchi, normal chest expansion, no tachypnea, normal percussion Gastrointestinal: soft, non-tender, non-distended, normal bowel sounds, no palpable masses, no hepatomegaly, no splenomegaly Extremities: no cyanosis, no clubbing, no edema Neurological: no new deficit, hemiplegia (Left hemiplegia) Hosp A/P (1) Hypertensive emergency Code(s): I16.1 - HYPERTENSIVE EMERGENCY Status: Acute (2) Seizure Code(s): R56.9 - UNSPECIFIED CONVULSIONS Status: Acute - Plan * Hypertensive Crisis /Emergency- resolved * HTN- blood pressure is still a bit labile- but overall improved- will continue the current regimen * Seizure- continue Keppra * Continue PT * Awaiting possible retirement placement
[2018-11-10] MEDS: Labetalol HCl 100 MG/20 ML VIAL SLOW IVP PRN (14:11)
[2018-11-11] MEDS: Amlodipine 5 MG TAB PO SCH (08:50)
[2018-11-11] MEDS: hydrALAZINE 25 MG TAB PO SCH ×4 (08:50→21:31)
[2018-11-11] MEDS: Famotidine 20 MG TAB PO SCH ×2 (08:50→21:31)
[2018-11-11] MEDS: Docusate 100 MG CAP PO SCH ×2 (08:50→21:33)
[2018-11-11] MEDS: Metoprolol Tartrate 50 MG TAB PO SCH ×2 (08:51→21:33)
[2018-11-11] MEDS: Lorazepam 1 MG TAB PO PRN ×2 (08:51→17:36)
[2018-11-11] MEDS: levETIRAcetam 500 MG TAB PO SCH ×2 (08:51→21:31)
[2018-11-11] MEDS: Lisinopril/Hydrochlorothiazide 10 mg/12.5 mg Tablet PO SCH ×2 (08:51→21:33)
[2018-11-11] MEDS: Minoxidil 2.5 MG TAB PO SCH (08:51)
--- NOTE | 2018-11-11 10:39 | PDOC.HOSPP ---
- Subjective Encounter Date: 11/11/18 Encounter Time: 10:36 Subjective: Mr. St was seen today in follow-up of Hypertensive crisis. He does not have any new complaints. - Objective Vital Signs & Weight: Vital Signs (12 hours) Temp Pulse Resp BP BP Pulse Ox 11/11/18 08:51 109 H 180/67 H 11/11/18 08:50 109 H 180/67 H 11/11/18 07:55 98.0 F 109 H 18 180/87 H 98 11/11/18 04:00 97.4 F L 95 18 142/68 H 97 11/10/18 23:59 98.3 F 94 18 165/89 H 96 Weight Admit Weight 249 lb 9.012 oz Weight 249 lb 9.012 oz Most Recent Monitor Data Heart Rate from ECG 93 NIBP 145/99 NIBP BP-Mean 114 Respiration from ECG 19 SpO2 100 I&O: 11/10/18 11/11/18 11/12/18 06:59 06:59 06:59 Intake Total 900 450 300 Balance 900 450 300 Result Diagrams: 11/08/18 04:51 11/08/18 04:51 ROS - Medication Medications: Active Medications Generic Name Dose Route Start Last Admin Trade Name Freq PRN Reason Stop Dose Admin Acetaminophen 650 mg 11/03/18 11:45 11/09/18 08:59 Tylenol PO 650 mg Q6H PRN Administration Headache/Fever or Pain Amlodipine Besylate 10 mg 11/01/18 09:20 11/11/18 08:50 Norvasc PO 10 mg DAILY JONI Administration Clonidine 0.2 mg 11/02/18 15:06 11/08/18 21:29 Catapres PO 0.2 mg TIDPRN PRN Administration SBP GREATER THAN 160 Docusate Sodium 100 mg 11/08/18 21:00 11/11/18 08:50 Colace PO 100 mg BID JONI Administration Famotidine 20 mg 11/02/18 21:00 11/11/18 08:50 Pepcid PO 20 mg BID JONI Administration Lisinopril/HCTZ 1 tab 11/08/18 09:00 11/11/18 08:51 Prinizide 10-12.5 PO 1 tab DAILY JONI Administration Hydralazine HCl 25 mg 11/04/18 17:00 11/11/18 08:50 Apresoline PO 25 mg QID JONI Administration Labetalol HCl 10 mg 10/31/18 04:23 11/10/18 14:11 Normodyne SLOW IVP 10 mg Q4H PRN Administration SBP Greater Than 180 Levetiracetam 1,000 mg 11/05/18 21:00 11/11/18 08:51 Keppra PO 1,000 mg BID JONI Administration Lorazepam 1 mg 11/05/18 17:43 11/11/18 08:51 Ativan PO 1 mg Q6H PRN Administration Anxiety Metoprolol Tartrate 50 mg 11/04/18 21:00 11/11/18 08:51 Lopressor PO 50 mg BID JONI Administration Minoxidil 5 mg 11/06/18 09:00 11/11/18 08:51 Minoxidil PO 5 mg DAILY JONI Administration Sodium Chloride 10 ml 10/29/18 19:35 11/10/18 20:55 Flush - Normal Saline IVF 10 ml PRN PRN Administration Saline Flush - Exam Eye: PERRL, anicteric sclera Heart: RRR, no murmur, no gallops, no rubs, normal peripheral pulses Respiratory: CTAB, no wheezes, no rales, no ronchi, normal chest expansion Gastrointestinal: soft, non-tender, non-distended, normal bowel sounds, no palpable masses Extremities: no cyanosis, no clubbing, no edema Hosp A/P (1) Hypertensive emergency Code(s): I16.1 - HYPERTENSIVE EMERGENCY Status: Acute (2) Seizure Code(s): R56.9 - UNSPECIFIED CONVULSIONS Status: Acute - Plan * Hypertensive Crisis /Emergency- resolved * HTN- blood pressure is elevated - will increase Lisinopril to BID * Seizure- continue Keppra * Continue PT * He had originally declined halfway, but has now changed his mind and would like to pursue this
[2018-11-12] MEDS: Lorazepam 1 MG TAB PO PRN ×3 (02:02→21:48)
[2018-11-12] MEDS: Metoprolol Tartrate 50 MG TAB PO SCH ×2 (08:29→21:48)
[2018-11-12] MEDS: Amlodipine 5 MG TAB PO SCH (08:29)
[2018-11-12] MEDS: Lisinopril/Hydrochlorothiazide 10 mg/12.5 mg Tablet PO SCH ×2 (08:29→21:48)
[2018-11-12] MEDS: Minoxidil 2.5 MG TAB PO SCH (08:30)
[2018-11-12] MEDS: levETIRAcetam 500 MG TAB PO SCH ×2 (08:30→21:47)
[2018-11-12] MEDS: Docusate 100 MG CAP PO SCH ×2 (08:30→21:48)
[2018-11-12] MEDS: Famotidine 20 MG TAB PO SCH ×2 (08:30→21:47)
[2018-11-12] MEDS: hydrALAZINE 25 MG TAB PO SCH ×4 (08:30→21:48)
[2018-11-12] MEDS: NIFEdipine XL 60 MG TAB PO SCH ×2 (09:51→21:47)
--- NOTE | 2018-11-12 18:13 | PDOC.HOSPP ---
- Subjective Encounter Date: 11/12/18 Encounter Time: 10:00 Subjective: Mr. St was seen today in follow-up of Hypertensive crisis. He denies headache today. He denies chest pain. - Objective Vital Signs & Weight: Vital Signs (12 hours) Temp Pulse Pulse Pulse Resp BP BP 11/12/18 17:15 113 H 136/76 11/12/18 16:06 97.4 F L 112 H 20 11/12/18 15:25 113 H 103 H 136/76 11/12/18 12:20 97 138/73 11/12/18 11:48 98.4 F 100 20 11/12/18 09:51 97 173/100 H 11/12/18 08:30 97 173/100 H 11/12/18 08:29 97 173/100 H 11/12/18 08:20 97.8 F 102 H 20 BP BP Pulse Ox 11/12/18 17:15 11/12/18 16:06 136/76 98 11/12/18 15:25 132/61 11/12/18 12:20 11/12/18 11:48 138/73 95 11/12/18 09:51 11/12/18 08:30 97 11/12/18 08:29 11/12/18 08:20 173/100 H 97 Weight Admit Weight 249 lb 9.012 oz Weight 249 lb 9.012 oz Most Recent Monitor Data Heart Rate from ECG 93 NIBP 145/99 NIBP BP-Mean 114 Respiration from ECG 19 SpO2 100 I&O: 11/11/18 11/12/18 11/13/18 06:59 06:59 06:59 Intake Total 450 900 846 Balance 450 900 846 Result Diagrams: 11/08/18 04:51 11/08/18 04:51 ROS - Medication Medications: Active Medications Generic Name Dose Route Start Last Admin Trade Name Freq PRN Reason Stop Dose Admin Acetaminophen 650 mg 11/03/18 11:45 11/09/18 08:59 Tylenol PO 650 mg Q6H PRN Administration Headache/Fever or Pain Clonidine 0.2 mg 11/02/18 15:06 11/08/18 21:29 Catapres PO 0.2 mg TIDPRN PRN Administration SBP GREATER THAN 160 Docusate Sodium 100 mg 11/08/18 21:00 11/12/18 08:30 Colace PO 100 mg BID JONI Administration Famotidine 20 mg 11/02/18 21:00 11/12/18 08:30 Pepcid PO 20 mg BID JONI Administration Lisinopril/HCTZ 1 tab 11/11/18 21:00 11/12/18 08:29 Prinizide 10-12.5 PO 1 tab BID JONI Administration Hydralazine HCl 25 mg 11/04/18 17:00 11/12/18 17:15 Apresoline PO 25 mg QID JONI Administration Labetalol HCl 10 mg 10/31/18 04:23 11/10/18 14:11 Normodyne SLOW IVP 10 mg Q4H PRN Administration SBP Greater Than 180 Levetiracetam 1,000 mg 11/05/18 21:00 11/12/18 08:30 Keppra PO 1,000 mg BID JONI Administration Lorazepam 1 mg 11/05/18 17:43 11/12/18 12:20 Ativan PO 1 mg Q6H PRN Administration Anxiety Metoprolol Tartrate 50 mg 11/04/18 21:00 11/12/18 08:29 Lopressor PO 50 mg BID JONI Administration Minoxidil 5 mg 11/06/18 09:00 11/12/18 08:30 Minoxidil PO 5 mg DAILY JONI Administration Nifedipine 60 mg 11/12/18 09:00 11/12/18 09:51 Procardia Xl PO 60 mg BID JONI Administration Sodium Chloride 10 ml 10/29/18 19:35 11/11/18 21:33 Flush - Normal Saline IVF 10 ml PRN PRN Administration Saline Flush - Exam Eye: PERRL, anicteric sclera Heart: RRR, no murmur, no gallops, no rubs, normal peripheral pulses Respiratory: CTAB, no wheezes, no rales, no ronchi, normal chest expansion Gastrointestinal: soft, non-tender, non-distended, normal bowel sounds, no palpable masses, no hepatomegaly Extremities: no cyanosis, no clubbing, no edema Neurological: hemiplegia (Left hemiplegia) Hosp A/P (1) Hypertensive emergency Code(s): I16.1 - HYPERTENSIVE EMERGENCY Status: Acute (2) Seizure Code(s): R56.9 - UNSPECIFIED CONVULSIONS Status: Acute - Plan * HTN- blood pressure continues to be elevated- will change Amlodipine to Nifedipine ER, and dose twice a day * Seizure- continue Keppra * Continue PT * Awaiting [facility] placement * Will ask PT to see the patient twice a day, and give care-hand i tube bender training
[2018-11-13] MEDS: Minoxidil 2.5 MG TAB PO SCH (10:27)
[2018-11-13] MEDS: levETIRAcetam 500 MG TAB PO SCH ×2 (10:29→20:07)
[2018-11-13] MEDS: Famotidine 20 MG TAB PO SCH ×2 (10:29→20:06)
[2018-11-13] MEDS: hydrALAZINE 25 MG TAB PO SCH ×4 (10:29→20:07)
[2018-11-13] MEDS: Docusate 100 MG CAP PO SCH ×2 (10:30→20:06)
[2018-11-13] MEDS: Lisinopril/Hydrochlorothiazide 10 mg/12.5 mg Tablet PO SCH ×2 (10:30→20:07)
[2018-11-13] MEDS: NIFEdipine XL 60 MG TAB PO SCH ×2 (10:30→20:06)
[2018-11-13] MEDS: Metoprolol Tartrate 50 MG TAB PO SCH ×2 (10:31→20:07)
--- NOTE | 2018-11-13 14:09 | PRG ---
DATE OF SERVICE: 11/13/2018 SUBJECTIVE: The patient is seen and examined at bedside. His appetite is fair. His left-sided weakness is gradually improving. His blood pressure is still an issue, but it is getting better after his medications were adjusted and different calcium channel mona was started. OBJECTIVE: VITAL SIGNS: Blood pressure is 137/75, pulse is 102, O2 saturation is 94% on room air, his respirations 16, temperature is 98.1. HEENT: Head is atraumatic and normocephalic. Eyes are PERRLA. Sclerae are nonicteric. Oral mucosa is moist. NECK: Supple. LUNGS: Clear. HEART: S1, S2 normal. ABDOMEN: Soft, nontender, nondistended. EXTREMITIES: No clubbing, cyanosis, or edema. NEUROLOGICAL: He follows my commands. He moves his all extremities. There is some weakness approximately 3 to 4/5 at the left upper and left lower extremity. There is no facial droop. LABORATORY DATA: None. IMPRESSION: 1. Hypertensive emergency. 2. Seizure. 3. Cerebral parenchymal hemorrhage, acute on the right. 4. Hemiplegia affecting left nondominant side. 5. Cocaine abuse. PLAN: We are awaiting for arrangements for jail facility for PT and OT to be finished. For now, we will continue his current regimen. We will continue PT and OT. Job ID: [id number]
[2018-11-13] MEDS: Lorazepam 1 MG TAB PO PRN (16:02)
[2018-11-13 21:43] LABS: Anion Gap 22 mmol/L (10-20); BUN (Urea Nitrogen) 21 mg/dL (8.9-20.6); Calc. Creatinine Clearance 119 mL/min (70-130); Calcium 10.2 mg/dL (7.8-10.44); Carbon Dioxide 22 mmol/L (22-29); Chloride 99 mmol/L (98-107); Estimated GFR-MDRD 71; Glucose 87 mg/dL (70-105); Potassium 5.7 mmol/L (3.5-5.1); Sodium 137 mmol/L (136-145)
[2018-11-14] MEDS: Lorazepam 1 MG TAB PO PRN ×3 (00:14→18:37)
[2018-11-14] MEDS: Minoxidil 2.5 MG TAB PO SCH (09:37)
[2018-11-14] MEDS: hydrALAZINE 25 MG TAB PO SCH ×4 (09:37→21:23)
[2018-11-14] MEDS: NIFEdipine XL 60 MG TAB PO SCH ×2 (09:37→21:22)
[2018-11-14] MEDS: Metoprolol Tartrate 50 MG TAB PO SCH ×2 (09:38→21:23)
[2018-11-14] MEDS: Lisinopril/Hydrochlorothiazide 10 mg/12.5 mg Tablet PO SCH ×2 (09:38→21:23)
[2018-11-14] MEDS: levETIRAcetam 500 MG TAB PO SCH ×2 (09:38→21:22)
[2018-11-14] MEDS: Famotidine 20 MG TAB PO SCH ×2 (09:38→21:23)
[2018-11-14] MEDS: Docusate 100 MG CAP PO SCH ×2 (09:38→21:23)
--- NOTE | 2018-11-14 13:57 | PRG ---
DATE OF SERVICE: 11/14/2018 SUBJECTIVE: The patient is seen and examined at the bedside. He does not have much complaints to offer. His appetite is fair. OBJECTIVE: VITAL SIGNS: Blood pressure is 155/86, pulse is 101, temperature is 97.8, respirations 20, and O2 saturation is 98% on room air. HEENT: His head is atraumatic and normocephalic. Pupils are responding to light properly. Sclerae are nonicteric. NECK: Supple. LUNGS: Clear. HEART: S1 and S2 normal. ABDOMEN: Obese, soft, and nontender. EXTREMITIES: No clubbing, cyanosis, or edema. NEUROLOGIC: He is alert and oriented x4. There is a motor deficits on the left side more on the lower extremity than on the upper extremity is about 4/5 and thought to be 3/5 in the lower extremities. LABORATORY DATA: None. IMPRESSION: 1. Cerebral parenchymal hemorrhage, acute. 2. Hypertensive emergency. 3. Seizures. 4. Hemiplegia affecting left nondominant side. 5. Cocaine abuse. PLAN: Continue PT and OT until he is approved by the insurance for his rehabilitation time. Job ID: [id number]
[2018-11-15] MEDS: Lorazepam 1 MG TAB PO PRN ×2 (01:08→13:50)
[2018-11-15] MEDS: levETIRAcetam 500 MG TAB PO SCH (09:19)
[2018-11-15] MEDS: Docusate 100 MG CAP PO SCH (09:19)
[2018-11-15] MEDS: Famotidine 20 MG TAB PO SCH (09:19)
[2018-11-15] MEDS: Minoxidil 2.5 MG TAB PO SCH (09:19)
[2018-11-15] MEDS: NIFEdipine XL 60 MG TAB PO SCH (09:20)
[2018-11-15] MEDS: hydrALAZINE 25 MG TAB PO SCH ×3 (09:20→16:39)
[2018-11-15] MEDS: Lisinopril/Hydrochlorothiazide 10 mg/12.5 mg Tablet PO SCH (09:20)
[2018-11-15] MEDS: Metoprolol Tartrate 50 MG TAB PO SCH (09:20)
[2018-11-15 13:35] LABS: Anion Gap 19 mmol/L (10-20); BUN (Urea Nitrogen) 17 mg/dL (8.9-20.6); Calc. Creatinine Clearance 136 mL/min (70-130); Calcium 10.8 mg/dL (7.8-10.44); Carbon Dioxide 25 mmol/L (22-29); Chloride 98 mmol/L (98-107); Estimated GFR-MDRD 83; Glucose 94 mg/dL (70-105); Potassium 3.9 mmol/L (3.5-5.1); Sodium 138 mmol/L (136-145)
[2018-11-15 15:54] VITALS: TEMP 97.6
[2018-11-15 16:40] VITALS: BP 138/79
--- NOTE | 2018-11-15 19:37 | DIS ---
DATE OF ADMISSION: 10/29/2018 DATE OF DISCHARGE: 11/15/2018 FINAL DIAGNOSES: 1. Cerebral parenchymal hemorrhage, right side, acute. 2. Hypertensive emergency. 3. Seizures. 4. Hemiplegia affecting left, nondominant side. 5. Cocaine abuse. 6. Renal insufficiency, improved. 7. Hypokalemia, corrected. 8. Mild hyperglycemia suggestive of prediabetes, most likely. CONSULTANTS: 1. Dr. Chico Zurita, Neurosurgery. 2. Dr. Jalen Garcia, Pulmonary/Critical Care. 3. Dr. Franky Mcfarlane, Pulmonary/Critical Care. 4. Dr. Luz Rao, Neurology. HOSPITAL COURSE: The patient is a 38-year-old male, who was admitted to the hospital with leg weakness. Apparently, he has a history of cocaine abuse and he had left arm and left leg weakness going on for approximately 1 hour with no clear triggers, no alleviating factors when he showed up in the emergency room. His blood pressure at the time of ER visit was 230/147. He had CT scan done of the brain which showed intracranial bleeding. Neurosurgery was consulted and the patient was started on Cardene drip and admitted to ICU. At the time of emergency room evaluation, his white count was 11.5, hemoglobin 15.7, MCV 84.2, platelet count 380. Sodium 139, potassium 2.9, chloride 99, CO2 of 28, BUN 16, creatinine 1.29, glucose 170, CK 493, troponin 0.015. EKG shows sinus tachycardia with ventricular rate of 104. The patient got admitted to the intensive care unit for IV Cardene drip. His blood pressure improved and he was seen by neurosurgeon, Dr. Zurita, who recommended to control his blood pressure. It was felt that most likely his hemorrhage was caused by hypertension. He recommended to do MRI scan to exclude any other underlying pathology. This was done and MRI of the brain showed intraparenchymal hematoma in the right frontal lobe. No any other pathology was found to explain this hemorrhage. The patient also was seen by Dr. Garcia as a Pulmonary/Critical Care consultation who recommended supportive care and close monitoring of his blood pressure. His CT angiography was remarkable for intracranial hemorrhage and subsequently, the patient was seen by Dr. Rao for consultation, who recommended to start him on IV Keppra and keep him on 750 mg twice a day. During this hospitalization, he was started on several blood pressure medications and it took several days before we started seeing improvement in his blood pressure to the point that we can say that he is stable to stay on this regimen. The patient was started on nifedipine, minoxidil, metoprolol, lisinopril with HCTZ to control his blood pressure. His Keppra was continued and his blood pressure today is 142/82, pulse is 97, temperature is 98.3, respirations 16, O2 saturation 95% on room air. He is seen and examined before he is discharged. He was getting physical therapy and occupational therapy during this hospitalization and he is going to be treated with PT [facility] OT [facility]. This is going to be [facility]. MEDICATIONS: At the time of discharge: 1. Keppra 1000 mg twice a day. 2. Nifedipine 60 mg twice a day. 3. Minoxidil 5 mg daily. 4. Metoprolol tartrate 50 mg twice a day. 5. Lorazepam 1 mg q.6 hours p.r.n. as needed. 6. Lisinopril hydrochlorothiazide 1 tablet twice a day. 7. Docusate 100 mg twice a day. 8. Tylenol regular strength 650 mg q.6 hours p.r.n. as needed. CONDITION: He is discharged in good condition. FOLLOWUP: He will follow up with his primary care physician in 1 week, with neurologist in 1 month, and with neurosurgeon in approximately the same time. TIME SPENT: Time spent on this discharge is less than 30 minutes. Job ID: [id number]
--- NOTE | 2018-11-18 10:28 | PQF ---
[employer] TRISTEN FERRARI MD [id number] CLINICAL DOCUMENTATION CLARIFICATION FORM: POST DISCHARGE Addendum to original discharge summary date: ____ Late entry note date: __ DATE: 11/18/2018 ATTN: TRISTEN FERRARI Please exercise your independent, professional judgment in responding to the clarification form. Clinical indicators are provided on the bottom of this form for your review Please check appropriate box(s): [ x] Cerebral edema / Vasogenic edema [ ] Compression of brain Due to: [ ] Intracranial tumor [ x ] Intracranial hematoma [ ] Acute cerebral infarction [ ] Traumatic brain injury [ ] Obstructive hydrocephalus [ ] Other diagnosis [ ] Unable to determine In addition, please specify: Present on Admission (POA): [ x ] Yes [ ] No [ ] Unable to determine For continuity of documentation, please document condition throughout progress notes and discharge summary. Thank You. CLINICAL INDICATORS - SIGNS / SYMPTOMS / LABS -MRI shows right frontal hemorrhage with some surrounding vasogenic edema-- Progress note, 10/31, Tee Morales PA-C -pt had some progression of his left-sided hemiplegia-Progress note, 10/31, Tee Morales PA-C -slight mildline shift has been previosly noted on CT with slight midline shift of the falx [id number]-10/30, Tommie Barkley MD -Mild surrounding edema is seen on FLAIR and [id number]-10/30, Tommie Barkley MD RISK FACTORS -Acute intraparenchymal bleeding sec to hypertensive emergency-H&P, 10/29, Joey Zuñiga MD -Hemiplegia affecting let nondominant side-DS, 11/15, TRISTEN FERRARI MD TREATMENTS: -KHU-Ihgli-18/08, -Dexamethasone.20mg-MAR, 10/30 (This form is maintained as a part of the permanent medical record) 2014 [employer]. All Rights Reserved [place] [employer] [not provided] [not provided] MTDD
== END 2018-11-15 17:50 | DRG 64 ==
LOC: ERS 18:30 → CCU 22:05 → 2SE 11-03 14:43
PROVIDERS: ADMIT Neurological Surgery; ATTEND Neurological Surgery
DX: I62.9 Nontraumatic intracranial hemorrhage, unspecified (principal); G93.41 Metabolic encephalopathy; G93.6 Cerebral edema; I16.1 Hypertensive emergency; G81.94 Hemiplegia, unspecified affecting left nondominant side; I16.9 Hypertensive crisis, unspecified; F14.10 Cocaine abuse, uncomplicated; N28.9 Disorder of kidney and ureter, unspecified; E87.6 Hypokalemia; R73.9 Hyperglycemia, unspecified; E16.2 Hypoglycemia, unspecified; R56.9 Unspecified convulsions
CPT/HCPCS: 36415; 36416; 70450; 70496; 70498; 70553; 80048; 80053; 80177; 82550; 84484; 85007; 85025; 85027; 85610; 85730; 93005; 94760; 96365; 96366; 96368; 96375; 96376; J0131; J1100; J1953; J2001; J2060; J2250; J2405; J2704; J3010; J3480; J3490; J7050; Q9966; S0028

== ENCOUNTER 2019-05-15 20:43 | Emergency (ER) | payer MEDICAID ==
--- NOTE | 2019-05-15 22:05 | CT ---
CT head noncontrast HISTORY: Altered mental status. Headache. COMPARISON: 11/01/2018. FINDINGS: There is no evidence of acute intracranial hemorrhage or infarct. Vertically oriented somew hat linear focus of decreased density at the medial aspect of the right frontal lobe is in the area of previous parenchymal hematoma and has the appearance of encephalomalacia. There is no mass effect or shift of midline structures. Visualized paranasal sinuses remain well aerated. IMPRESSION: Sequelae of old right frontal lobe insult. No acute intracranial abnormalities are demons trated.
== END 2019-05-15 22:38 | disposition home or self-care (01) ==
LOC: ERS 20:43
DX: I10 Essential (primary) hypertension (principal); Z71.1 Person with feared health complaint in whom no diagnosis is made; F41.9 Anxiety disorder, unspecified; Z79.899 Other long term (current) drug therapy
CPT/HCPCS: 70450